=== PATIENT | female | born 1990 ===

== ENCOUNTER 2016-07-17 08:48 | Emergency (ER) | payer OTHER, MEDICAID ==
[2016-07-17 08:48] VITALS: BMI 33.6
[2016-07-17] MEDS ORDERED: Sodium Chloride 0.9% 1,000 ML IV STA (09:14)
--- NOTE | 2016-07-17 09:28 | ED PDOC ---
Arrival/HPI - General Chief Complaint: Abdominal Pain Time Seen by Provider: 07/17/16 09:10 Historian: Patient - History of Present Illness Narrative History of Present Illness (Text): 07/17/16 09:26 26 year old female presents to the emergency department with suprapubic pain that feels like her previous UTI. She also reports chills and nausea. No other complaints Time/Duration: < week Symptom Onset: Gradual Symptom Course: Unchanged Modifying Factors (Text): None Associated Symptoms (Text): Chills, Nausea Past Medical History - Provider Review Nursing Documentation Reviewed: Yes - Infectious Disease Hx of Infectious Diseases: None - Tetanus Immunization Tetanus Immunization: Unknown - Reproductive Menopause: No - Cardiac Hx Cardiac Disorders: No Hx Hypertension: No - Pulmonary Hx Respiratory Disorders: No Hx Tuberculosis: No - Neurological Hx Neurological Disorder: Yes Hx Seizures: Yes - HEENT Hx HEENT Disorder: No - Renal Hx Renal Disorder: Yes Hx Pyelonephritis: Yes - Endocrine/Metabolic Hx Endocrine Disorders: Yes Hx Hypothyroidism: Yes - Hematological/Oncological Hx Blood Disorders: No Hx Cancer: No - Integumentary Hx Dermatological Disorder: No - Musculoskeletal/Rheumatological Hx Musculoskeletal Disorders: Yes Hx Back Pain: Yes Hx Falls: No Other/Comment: spondylosis - Gastrointestinal Hx Gastrointestinal Disorders: No - Genitourinary/Gynecological Hx Genitourinary Disorders: No Hx Sexually Transmitted Diseases: No - Psychiatric Hx Psychophysiologic Disorder: Yes Hx Bipolar Disorder: Yes Hx Depression: Yes Hx Substance Use: No - Surgical History Hx Section: Yes (x1) Other/Comment: - Anesthesia Hx Anesthesia: Yes Hx Anesthesia Reactions: No Hx Malignant Hyperthermia: No Family/Social History - Physician Review Nursing Documentation Reviewed: Yes Family/Social History: Unknown Family HX Smoking Status: Current Some Days Smoker Hx Alcohol Use: No Hx Substance Use: No Substance used: marijuana Allergies/Home Meds Allergies/Adverse Reactions: Allergies No Known Allergies Allergy (Verified 07/17/16 08:55) Home Medications: Home Meds Medication Instructions Recorded Confirmed Invaga 07/17/16 Review of Systems - Physician Review All systems were reviewed & negative as marked: Yes - Review of Systems Constitutional: Other (Chills) Respiratory: absent: SOB Gastrointestinal: Abdominal Pain (Suprapubic), Nausea Neurological: absent: Dizziness Physical Exam Vital Signs Reviewed: Yes Vital Signs Temp Pulse Resp BP Pulse Ox 07/17/16 12:17 98.1 F 76 18 123/79 97 07/17/16 11:02 89 18 125/89 97 07/17/16 08:52 99 F 95 H 16 127/92 H 100 Temperature: Afebrile Blood Pressure: Normal Pulse: Regular Respiratory Rate: Normal Appearance: Positive for: Well-Appearing, Non-Toxic, Comfortable Pain Distress: None Mental Status: Positive for: Alert and Oriented X 3 - Systems Exam Head: Present: Atraumatic, Normocephalic Pupils: Present: PERRL Extroacular Muscles: Present: EOMI Conjunctiva: Present: Normal Mouth: Present: Moist Mucous Membranes Neck: Present: Normal Range of Motion Respiratory/Chest: Present: Clear to Auscultation, Good Air Exchange. No: Respiratory Distress, Accessory Muscle Use Cardiovascular: Present: Regular Rate and Rhythm, Normal S1, S2. No: Murmurs Abdomen: Present: Tenderness (Suprapubic), Normal Bowel Sounds. No: Distention , Peritoneal Signs Back: Present: Normal Inspection Upper Extremity: Present: Normal Inspection. No: Cyanosis, Edema Lower Extremity: Present: Normal Inspection. No: Edema Neurological: Present: GCS=15, CN II-XII Intact, Speech Normal Skin: Present: Warm, Dry, Normal Color. No: Rashes Psychiatric: Present: Alert, Oriented x 3, Normal Insight, Normal Concentration Medical Decision Making ED Course and Treatment: Impression: 26 year old female presents to the emergency department with suprapubic pain that feels like her previous UTI. Differential Diagnosis include but are not limited to: Abdominal pain Plan: -- Zofran -- IV fluids -- Labs -- Reassess and disposition Prior Visits: Notes and results from previous visits were reviewed. Patient last seen in ED on 05/18/16 for anxiety and discharged home. Progress Notes: PROCEDURE: CT Abdomen and Pelvis without intravenous contrast Spaghetti Machine Operator : Rodo Garner MD IMPRESSION: No acute findings. No evidence of ureteral stone 07/17/16 12:19 Patient texting on phone in no acute distress. Abdomen soft and nontender. - Lab Interpretations Lab Results: 07/17/16 09:42 07/17/16 09:42 Lab Results 07/17/16 09:42: Sodium 140, Potassium 4.6, Chloride 102, Carbon Dioxide 28, Anion Gap 15, BUN 18, Creatinine 0.9, Est GFR ( Amer) > 60, Est GFR (Non- Af Amer) > 60, Random Glucose 85, Calcium 9.3, Total Bilirubin 0.5, AST 24, ALT 24, Alkaline Phosphatase 67, Total Protein 7.6, Albumin 4.0, Globulin 3.5, Albumin/Globulin Ratio 1.1, Lipase 121 07/17/16 09:42: PT 10.4, INR 0.96, APTT 26.4 07/17/16 09:42: WBC 7.7, RBC 4.42, Hgb 13.0, Hct 39.0, MCV 88.2, MCH 29.4, MCHC 33.3, RDW 14.6 H, Plt Count 244, MPV 10.3, Gran % 62.3, Lymph % (Auto) 19.6 L, [place] % (Auto) 10.6 H, Eos % (Auto) 7.2 H, Baso % (Auto) 0.3, Gran # 4.78, Lymph # 1.5, [place] # 0.8 H, Eos # 0.6, Baso # 0.02 07/17/16 09:20: Urine Color Yellow, Urine Appearance Clear, Urine pH 7.0, Ur Specific [place] <= 1.005, Urine Protein Negative, Urine Glucose (UA) Negative, Urine Ketones Negative, Urine Blood Negative, Urine Nitrate Negative, Urine Bilirubin Negative, Urine Urobilinogen 0.2, Ur Leukocyte Esterase Negative, Urine HCG, Qual Negative - RAD Interpretation Radiology Orders: 07/17/16 10:17 ABD & PELVIS W/O PO OR IV CONT [CT] Stat - Medication Orders Current Medication Orders: Discontinued Medications Sodium Chloride (Sodium Chloride 0.9%) 1,000 mls @ 1,000 mls/hr IV .Q1H STA Stop: 07/17/16 10:13 Last Admin: 07/17/16 09:20 Dose: 1,000 mls/hr Ketorolac Tromethamine (Toradol) 30 mg IVP STAT STA Stop: 07/17/16 10:17 Last Admin: 07/17/16 11:20 Dose: 30 mg Ondansetron HCl (Zofran Inj) 4 mg IVP STAT STA Stop: 07/17/16 09:15 Last Admin: 07/17/16 09:20 Dose: 4 mg - Scribe Statement The provider has reviewed the documentation as recorded by the Yves Beard Provider Scribe Attestation: All medical record entries made by the Yves were at my direction and personally dictated by me. I have reviewed the chart and agree that the record accurately reflects my personal performance of the history, physical exam, medical decision making, and the department course for this patient. I have also personally directed, reviewed, and agree with the discharge instructions and disposition. Disposition/Present on Arrival - Present on Arrival Any Indicators Present on Arrival: No History of DVT/PE: No History of Uncontrolled Diabetes: No Urinary Catheter: No History of Decub. Ulcer: No History Surgical Site Infection Following: None - Disposition Have Diagnosis and Disposition been Completed?: Yes Diagnosis: Abdominal pain, Dysuria Disposition: HOME/ ROUTINE Disposition Time: 12:07 Patient Problems: Current Active Problems Problem Status Onset Abdominal pain Acute Dysuria Acute Condition: STABLE Discharge Instructions (ExitCare): Acute Abdominal Pain (ED), Dysuria (ED) Additional Instructions: please follow up with your doctor/specialist. return to er with worsening symptoms or concerns. Referrals: Vernon Arrington MD [Primary Care Provider] - Follow up with primary Osmani Coto DO [Staff Provider] - Follow up with primary Miguel Ferguson [Medical Doctor] - Follow up with primary Lupe Brown MD [Medical Doctor] - Follow up with primary
[2016-07-17 09:46] LABS: URINE BILIRUBIN NEGATIVE (NEGATIVE); URINE BLOOD NEGATIVE (NEGATIVE); URINE GLUCOSE (UA) NEGATIVE (NEGATIVE); URINE KETONE NEGATIVE (NEGATIVE); URINE LEUKOCYTE ESTERASE NEGATIVE Leu/uL (NEGATIVE); URINE PROTEIN NEGATIVE mg/dL (<30 mg/dL); URINE UROBILINOGEN 0.2 E.U./dL (<1 E.U./dL)
[2016-07-17 09:53] LABS: URINE APPEARANCE CLEAR (CLEAR); URINE COLOR YELLOW (YELLOW)
[2016-07-17 10:07] LABS: ADD MANUAL DIFF? NO
[2016-07-17 10:12] LABS: BASO # 0.02 K/mm3 (0.0-2.0); BASO % 0.3 % (0.0-3.0); EOS # 0.6 (0.0-0.7); EOS % 7.2 % (1.5-5.0); GRAN # 4.78 (1.4-6.5); GRAN % 62.3 % (50.0-68.0); LYMPH # 1.5 (1.2-3.4); LYMPH % 19.6 % (22.0-35.0); MEAN CELL VOLUME 88.2 fL (80.0-105.0); MEAN CORPUSCULAR HEMOGLOBIN 29.4 pg (25.0-35.0); MEAN CORPUSCULAR HGB CONC 33.3 g/dl (31.0-37.0); MEAN PLATELET VOLUME 10.3 fl (7.0-11.0); MONO # 0.8 (0.1-0.6); MONO % 10.6 % (1.0-6.0); PLATELET COUNT 244 10^3/uL (120.0-450.0); RED CELL DISTRIBUTION WIDTH 14.6 % (11.5-14.5); WHITE BLOOD COUNT 7.7 10^3/ul (4.5-11.0)
[2016-07-17 10:25] LABS: ALB/GLOB RATIO 1.1 (1.1-1.8); ALKALINE PHOSPHATASE 67 U/L (38-133); ALT/SGPT 24 U/L (7-56); AST/SGOT 24 U/L (15-39); BILIRUBIN,TOTAL 0.5 mg/dL (0.2-1.3); BLOOD UREA NITROGEN 18 mg/dL (7-21); CALCIUM 9.3 mg/dL (8.4-10.5); CARBON DIOXIDE 28 mmol/L (21-33); CHLORIDE 102 mmol/L (98-107); GFR AFRICAN-AMERICAN > 60; GLUCOSE,RANDOM 85 mg/dL (70-110); LIPASE 121 U/L (23-300); POTASSIUM 4.6 mmol/L (3.6-5.0); SODIUM 140 mmol/L (132-148); TOTAL PROTEIN 7.6 g/dL (5.8-8.3)
[2016-07-17 11:02] VITALS: RESP 18; O2SAT 97
[2016-07-17 11:27] LABS: INR 0.96 (0.93-1.08); PARTIAL THROMBOPLASTIN TIME 26.4 Seconds (23.7-30.8)
--- NOTE | 2016-07-17 12:00 | CT ---
PROCEDURE: CT Abdomen and Pelvis without intravenous contrast HISTORY: flank pain COMPARISON: 08/15/2015 TECHNIQUE: Noncontrast. Contrast Dose: Radiation dose: Total exam DLP = 807 mGy-cm. This CT exam was performed using one or more of the following dose reduction techniques: Automated exposure control, adjustment of the mA and/or kV according to patient size, and/or use of iterative reconstruction technique. FINDINGS: LOWER THORAX: Unremarkable. LIVER: Unremarkable. No gross lesion or ductal dilatation. GALLBLADDER AND BILE DUCTS: Unremarkable. PANCREAS: Unremarkable. No gross lesion or ductal dilatation. SPLEEN: Unremarkable. ADRENALS: Unremarkable. No mass. KIDNEYS AND URETERS: Unremarkable. No hydronephrosis. No solid mass. VASCULATURE: Unremarkable. No aortic aneurysm. BOWEL: Unremarkable. No obstruction. No gross mural thickening. APPENDIX: Unremarkable. Normal appendix. PERITONEUM: Unremarkable. No free fluid. No free air. LYMPH NODES: Unremarkable. No enlarged lymph nodes. BLADDER: Unremarkable. REPRODUCTIVE: Unremarkable. BONES: No acute fracture. OTHER FINDINGS: None. IMPRESSION: No acute findings. No evidence of ureteral stone
[2016-07-17 12:18] VITALS: BP 123/79; PULSE 76; TEMP 98.1
== END 2016-07-17 12:44 | disposition home or self-care (01) ==
LOC: ED 08:48
DX: R30.0 Dysuria (principal); R10.9 Unspecified abdominal pain
CPT/HCPCS: 74176; 80053; 81003; 83690; 84703; 85025; 85610; 85730; 96361; 96374; 96375; 99284; J1885; J2405; J7040

== ENCOUNTER 2016-10-02 11:54 | Emergency (ER) | payer MEDICAID, OTHER ==
[2016-10-02 11:57] VITALS: BMI 34.5
[2016-10-02 12:02] VITALS: BP 126/87; PULSE 88; RESP 20; TEMP 97.8; O2SAT 100
--- NOTE | 2016-10-02 12:07 | ED PDOC ---
Arrival/HPI - General Historian: Patient - History of Present Illness Time/Duration: 1 week Symptom Onset: Gradual Symptom Course: Unchanged <Mahendra Cota - Last Filed: 10/02/16 13:31> <Osmani Foreman DO - Last Filed: 10/02/16 20:46> - General Chief Complaint: Flu-like Symptoms Time Seen by Provider: 10/02/16 12:05 - History of Present Illness Narrative History of Present Illness (Text): 26 F with PMH of Bipolar disorder, hypothyroidism, Schizoaffective disorder, presents to ED for complaint of flu-like symptoms for 1 week. Patient states that it was a graudal onset and has not gotten better. Her symptoms have been constant. She reporst to having cough, runny nose, congestion, PND, muscle/ joint aches, nausea/vomting. Patient has had decreased PO intae over lasst week , vomiting up all foods and liquids. Today, she was bale to keep down a little, gatorade. Also admits to subjective fever/chills, night sweats, fatigue. Denies cp, sob, palpitations, abd pain, diarrhea, constipation. (Mahendra Cota) Past Medical History - Provider Review Nursing Documentation Reviewed: Yes - Travel History Have you recently traveled outside [place] w/in the past 3 mons?: No - Infectious Disease Hx of Infectious Diseases: None - Tetanus Immunization Tetanus Immunization: Unknown - Cardiac Hx Cardiac Disorders: No Hx Hypertension: No - Pulmonary Hx Respiratory Disorders: No Hx Tuberculosis: No - Neurological Hx Neurological Disorder: Yes Hx Seizures: Yes - HEENT Hx HEENT Disorder: No - Renal Hx Renal Disorder: Yes Hx Pyelonephritis: Yes - Endocrine/Metabolic Hx Endocrine Disorders: Yes Hx Hypothyroidism: Yes - Hematological/Oncological Hx Blood Disorders: No Hx Cancer: No - Integumentary Hx Dermatological Disorder: No - Musculoskeletal/Rheumatological Hx Musculoskeletal Disorders: Yes Hx Back Pain: Yes Hx Falls: No Other/Comment: spondylosis - Gastrointestinal Hx Gastrointestinal Disorders: No - Genitourinary/Gynecological Hx Genitourinary Disorders: No Hx Sexually Transmitted Diseases: No - Psychiatric Hx Psychophysiologic Disorder: Yes Hx Bipolar Disorder: Yes Hx Depression: Yes Hx Substance Use: No - Surgical History Hx Section: Yes (x1) Other/Comment: - Anesthesia Hx Anesthesia: Yes Hx Anesthesia Reactions: No Hx Malignant Hyperthermia: No <Mahendra Cota Last Filed: 10/02/16 13:31> Family/Social History - Physician Review Nursing Documentation Reviewed: Yes Smoking Status: Light Smoker < 10 Cigarettes Daily Hx Alcohol Use: No Hx Substance Use: No Substance used: marijuana <Mahendra Cota Last Filed: 10/02/16 13:31> Family/Social History: No Known Family HX <Osmani Foreman DO - Last Filed: 10/02/16 20:46> Allergies/Home Meds <Mahendra Cota Last Filed: 10/02/16 13:31> <Osmani Foreman DO Last Filed: 10/02/16 20:46> Allergies/Adverse Reactions: Allergies No Known Allergies Allergy (Verified 10/02/16 11:57) Home Medications: Home Meds Medication Instructions Recorded Confirmed Invaga 156 mg PO Q30D 07/17/16 10/02/16 Review of Systems - Review of Systems Constitutional: Fatigue, Fevers, Night Sweats. absent: Weight Change Eyes: absent: Vision Changes, Photophobia, Eye Pain ENT: Sore Throat, Rhinorrhea, Sinus Congestion. absent: Epistaxis Respiratory: Cough, Sputum. absent: SOB, Wheezing Cardiovascular: absent: Chest Pain, Palpitations, Syncope Gastrointestinal: Nausea, Vomiting. absent: Abdominal Pain, Constipation, Diarrhea, Hematochezia, Hematemesis Genitourinary Female: absent: Dysuria, Frequency, Hematuria Musculoskeletal: Arthralgias, Myalgias Skin: absent: Rash, Pruritis, Skin Lesions Neurological: absent: Headache, Dizziness, Focal Weakness Endocrine: absent: Diaphoresis, Polyuria, Polydipsia Hemo/Lymphatic: absent: Adenopathy, Easy Bleeding, Easy Bruising Psychiatric: absent: Anxiety, Depression, Suicidal Ideation <Mahendra Cota Last Filed: 10/02/16 13:31> Physical Exam Vital Signs Reviewed: Yes Temperature: Afebrile Blood Pressure: Normal Pulse: Regular Respiratory Rate: Normal Appearance: Positive for: Well-Appearing, Non-Toxic, Comfortable Pain Distress: None Mental Status: Positive for: Alert and Oriented X 3 - Systems Exam Head: Present: Atraumatic, Normocephalic Pupils: Present: PERRL Extroacular Muscles: Present: EOMI Conjunctiva: Present: Normal Ears: Present: Normal, NORMAL TM Mouth: Present: Moist Mucous Membranes Pharnyx: Present: Normal. No: ERYTHEMA, EXUDATE, TONSILS ENLARGED Nose (External): Present: Atraumatic Nose (Internal): Present: Boggy, Rhinorrhea Neck: Present: Normal Range of Motion, Trachea Midline Respiratory/Chest: Present: Clear to Auscultation, Good Air Exchange. No: Respiratory Distress, Accessory Muscle Use, Wheezes, Rales, Rhonchi Cardiovascular: Present: Regular Rate and Rhythm, Normal S1, S2 Abdomen: Present: Normal Bowel Sounds. No: Tenderness, Distention, Peritoneal Signs, Rebound, Guarding Back: Present: Normal Inspection. No: CVA Tenderness, Midline Tenderness, Paraspinal Tenderness Upper Extremity: Present: Normal ROM, NORMAL PULSES, Neurovascularly Intact, Capillary Refill < 2s. No: Cyanosis, Edema Lower Extremity: Present: NORMAL PULSES, Normal ROM, Neurovascularly Intact, Capillary Refill < 2 s Neurological: Present: GCS=15, CN II-XII Intact, Speech Normal, Motor Func Grossly Intact, Normal Sensory Function, Normal Cerebellar Funct Skin: Present: Warm, Dry, Normal Color Lymphatic: No: Cervical Adenopathy, Axillary Adenopathy, Inguinal Adenopathy Psychiatric: Present: Alert, Oriented x 3, Normal Insight, Normal Concentration , Normal Affect, Normal Mood <Mahendra Cota - Last Filed: 10/02/16 13:31> <Osmani Foreman DO - Last Filed: 10/02/16 20:46> Vital Signs Temp Pulse Resp BP Pulse Ox 10/02/16 12:00 97.8 F 88 20 126/87 100 Medical Decision Making <Mahendra Cota - Last Filed: 10/02/16 13:31> <Osmani Foreman DO - Last Filed: 10/02/16 20:46> ED Course and Treatment: CBC, CMP, Urinalysis, Urine , influenze A B ordered. NS 1L bolus, zofran, clariton given. Patient Eloped around 1:10 pm. (Mahendra Cota) In agreement with resident note, which includes further HPI details. Patient was seen and evaluated with resident, came up with plan and treatment together. (Osmnai Foreman DO) - Lab Interpretations Lab Results: 10/02/16 12:50 10/02/16 12:50 Lab Results 10/02/16 12:50: Influenza Typ A,B (EIA) Negative for flu a/b 10/02/16 12:50: Sodium 140, Potassium 4.5, Chloride 102, Carbon Dioxide 29, Anion Gap 14, BUN 12, Creatinine 1.0, Est GFR ( Amer) > 60, Est GFR (Non- Af Amer) > 60, Random Glucose 83, Calcium 9.7, Total Bilirubin 0.5, AST 25, ALT 29, Alkaline Phosphatase 84, Total Protein 8.3, Albumin 4.5, Globulin 3.8, Albumin/Globulin Ratio 1.2 10/02/16 12:50: Urine Color Yellow, Urine Appearance Clear, Urine pH 7.0, Ur Specific [place] 1.010, Urine Protein Negative, Urine Glucose (UA) Negative, Urine Ketones Negative, Urine Blood Negative, Urine Nitrate Negative, Urine Bilirubin Negative, Urine Urobilinogen 0.2, Ur Leukocyte Esterase Negative, Urine HCG, Qual Negative 10/02/16 12:50: WBC 8.1, RBC 4.65, Hgb 14.0, Hct 41.4, MCV 89.0, MCH 30.1, MCHC 33.8, RDW 13.7, Plt Count 235, MPV 9.8, Gran % 61.1, Lymph % (Auto) 21.8 L, [place] % (Auto) 7.2 H, Eos % (Auto) 9.5 H, Baso % (Auto) 0.4, Gran # 4.94, Lymph # 1.8, [place] # 0.6, Eos # 0.8 H, Baso # 0.03 - Medication Orders Current Medication Orders: Discontinued Medications Sodium Chloride (Sodium Chloride 0.9%) 1,000 mls @ 999 mls/hr IV .Q1H1M STA Stop: 10/02/16 13:23 Last Admin: 10/02/16 12:58 Dose: 999 mls/hr Loratadine (Claritin) 10 mg PO ONCE ONE Stop: 10/02/16 12:24 Last Admin: 10/02/16 12:59 Dose: 10 mg Ondansetron HCl (Zofran Inj) 4 mg IVP STAT STA Stop: 10/02/16 12:24 Last Admin: 10/02/16 12:58 Dose: 4 mg <Maehndra Cota - Last Filed: 10/02/16 13:31> - PA / CAP SEWER / Resident Statement SARAHI has reviewed & agrees with the documentation as recorded. SARAHI has examined the patient and agrees with the treatment plan. - Scribe Statement The provider has reviewed the documentation as recorded by the Scribe <Osmani Foreman DO - Last Filed: 10/02/16 20:46> - Scribe Statement Kassie Walter Provider Scribe Attestation: All medical record entries made by the Scribe were at my direction and personally dictated by me. I have reviewed the chart and agree that the record accurately reflects my personal performance of the history, physical exam, medical decision making, and the department course for this patient. I have also personally directed, reviewed, and agree with the discharge instructions and disposition. (Osmani Foreman DO) Disposition/Present on Arrival - Present on Arrival History of DVT/PE: No History of Uncontrolled Diabetes: No Urinary Catheter: No History of Decub. Ulcer: No History Surgical Site Infection Following: None <Mahendra Cota - Last Filed: 10/02/16 13:31> - Present on Arrival Any Indicators Present on Arrival: No - Disposition Have Diagnosis and Disposition been Completed?: Yes Disposition Time: 12:00 <Osmani Foreman DO - Last Filed: 10/02/16 20:46> - Disposition Diagnosis: Viral syndrome Disposition: ELOPEMENT - ER ONLY Condition: UNKNOWN Referrals: PCP,NO [Primary Care Provider] - Follow up with primary
[2016-10-02] MEDS ORDERED: Sodium Chloride 0.9% 1,000 ML IV STA (12:23)
[2016-10-02 13:06] LABS: BASO # 0.03 K/mm3 (0.0-2.0); BASO % 0.4 % (0.0-3.0); EOS # 0.8 (0.0-0.7); EOS % 9.5 % (1.5-5.0); GRAN # 4.94 (1.4-6.5); GRAN % 61.1 % (50.0-68.0); LYMPH # 1.8 (1.2-3.4); LYMPH % 21.8 % (22.0-35.0); MEAN CORPUSCULAR HEMOGLOBIN 30.1 pg (25.0-35.0); MEAN CORPUSCULAR HGB CONC 33.8 g/dl (31.0-37.0); MEAN PLATELET VOLUME 9.8 fl (7.0-11.0); MONO # 0.6 (0.1-0.6); MONO % 7.2 % (1.0-6.0); PLATELET COUNT 235 10^3/uL (120.0-450.0); RBC 4.65 10^6/uL (3.5-6.1); RED CELL DISTRIBUTION WIDTH 13.7 % (11.5-14.5); URINE BILIRUBIN NEGATIVE (NEGATIVE); URINE BLOOD NEGATIVE (NEGATIVE); URINE GLUCOSE (UA) NEGATIVE (NEGATIVE); URINE LEUKOCYTE ESTERASE NEGATIVE Leu/uL (NEGATIVE); URINE NITRATE NEGATIVE (NEGATIVE); URINE PROTEIN NEGATIVE mg/dL (<30 mg/dL); URINE UROBILINOGEN 0.2 E.U./dL (<1 E.U./dL); WHITE BLOOD COUNT 8.1 10^3/ul (4.5-11.0)
[2016-10-02 13:09] LABS: HCG,QUALITATIVE URINE NEGATIVE (NEGATIVE); URINE APPEARANCE CLEAR (CLEAR); URINE COLOR YELLOW (YELLOW)
[2016-10-02 13:18] LABS: ALB/GLOB RATIO 1.2 (1.1-1.8); ALBUMIN 4.5 g/dL (3.0-4.8); ALT/SGPT 29 U/L (7-56); AST/SGOT 25 U/L (15-39); BLOOD UREA NITROGEN 12 mg/dL (7-21); CALCIUM 9.7 mg/dL (8.4-10.5); GFR AFRICAN-AMERICAN > 60; GFR NON-AFRICAN AMERICAN > 60
== END 2016-10-02 13:10 | disposition left against medical advice (07) ==
LOC: ED 11:54
DX: B34.9 Viral infection, unspecified (principal)
CPT/HCPCS: 80053; 81003; 84703; 85025; 87086; 87804; 96374; 99284; J2405; J7040

== ENCOUNTER 2016-10-07 11:48 | Observation (INO) | payer MEDICAID ==
[2016-10-07 11:54] VITALS: BMI 32.5
--- NOTE | 2016-10-07 12:14 | ED PDOC ---
Arrival/HPI - General Chief Complaint: Seizure Time Seen by Provider: 10/07/16 11:49 Historian: Patient, Parent (Mother), EMS - History of Present Illness Narrative History of Present Illness (Text): 10/07/16 12:09 A 26 year old female, whose past medical history includes seizure disorder, was brought into the emergency department by EMS after witnessed seizure prior to arrival. Patient reports she has not been compliant with any of her medications for the past few weeks. Patient is suppose to be taking 1500 mg of Depakote daily. Patient denies any head trauma, headache, dizziness, vision changes, tongue bitting, fever, chills, nausea, vomiting, diarrhea, urinary symptoms, urinary/bowel incontinence, abdominal pain, chest pain, shortness of breath, suicidal/homicidal ideation or any other complaints. PMD: Dr. Fisher in [place] Psychologist: [facility] [place] Provider Time/Duration: Prior to Arrival Symptom Course: Resolved Quality: Other Context: Other Past Medical History - Provider Review Nursing Documentation Reviewed: Yes - Infectious Disease Hx of Infectious Diseases: None - Tetanus Immunization Tetanus Immunization: Unknown - Cardiac Hx Cardiac Disorders: No Hx Hypertension: No - Pulmonary Hx Respiratory Disorders: No Hx Tuberculosis: No - Neurological Hx Neurological Disorder: Yes Hx Seizures: Yes - HEENT Hx HEENT Disorder: No - Renal Hx Renal Disorder: Yes Hx Pyelonephritis: Yes - Endocrine/Metabolic Hx Endocrine Disorders: Yes Hx Hypothyroidism: Yes - Hematological/Oncological Hx Blood Disorders: No Hx Cancer: No - Integumentary Hx Dermatological Disorder: No - Musculoskeletal/Rheumatological Hx Musculoskeletal Disorders: Yes Hx Back Pain: Yes Hx Falls: No Other/Comment: spondylosis - Gastrointestinal Hx Gastrointestinal Disorders: No - Genitourinary/Gynecological Hx Genitourinary Disorders: No Hx Sexually Transmitted Diseases: No - Psychiatric Hx Psychophysiologic Disorder: Yes Hx Bipolar Disorder: Yes Hx Depression: Yes Hx Substance Use: Yes - Surgical History Hx Section: Yes (x1) - Anesthesia Hx Anesthesia: Yes Hx Anesthesia Reactions: No Hx Malignant Hyperthermia: No Family/Social History - Physician Review Nursing Documentation Reviewed: Yes Family/Social History: No Known Family HX Smoking Status: Light Smoker < 10 Cigarettes Daily Hx Alcohol Use: No Hx Substance Use: Yes Substance used: marijuana Allergies/Home Meds Allergies/Adverse Reactions: Allergies No Known Allergies Allergy (Verified 10/07/16 11:54) Home Medications: Home Meds Medication Instructions Recorded Confirmed Invaga 156 mg PO Q30D 07/17/16 10/07/16 Benztropine [Cogentin] 2 mg PO DAILY 10/07/16 10/07/16 Review of Systems - Physician Review All systems were reviewed & negative as marked: Yes - Review of Systems Constitutional: absent: Fevers, Night Sweats Eyes: absent: Vision Changes ENT: absent: Other (Tongue bitting) Respiratory: absent: SOB Cardiovascular: absent: Chest Pain Gastrointestinal: absent: Abdominal Pain, Diarrhea, Nausea, Vomiting Genitourinary Female: absent: Dysuria, Frequency, Hematuria, Urine Output Changes, Other (Urinary/bowel incontinence) Neurological: Seizure. absent: Headache, Dizziness Psychiatric: absent: Suicidal Ideation (/homicidal ideation) Physical Exam Vital Signs Reviewed: Yes Vital Signs Temp Pulse Resp BP Pulse Ox 10/07/16 15:06 98 H 18 131/65 100 10/07/16 14:05 100 H 18 133/66 100 10/07/16 12:14 98.2 F 91 H 20 127/62 97 Temperature: Afebrile Blood Pressure: Normal Pulse: Tachycardic Respiratory Rate: Normal Appearance: Positive for: Well-Appearing, Non-Toxic, Comfortable Pain Distress: None Mental Status: Positive for: Alert and Oriented X 3 - Systems Exam Head: Present: Atraumatic, Normocephalic Pupils: Present: PERRL Conjunctiva: Present: Normal Mouth: Present: Moist Mucous Membranes Pharnyx: Present: Normal. No: ERYTHEMA Neck: Present: Normal Range of Motion Respiratory/Chest: Present: Clear to Auscultation, Good Air Exchange. No: Respiratory Distress, Accessory Muscle Use Cardiovascular: Present: Regular Rate and Rhythm, Normal S1, S2. No: Murmurs Abdomen: Present: Normal Bowel Sounds. No: Tenderness, Distention, Peritoneal Signs Back: Present: Normal Inspection Upper Extremity: Present: Normal Inspection. No: Cyanosis, Edema Lower Extremity: Present: Normal Inspection. No: Edema Neurological: Present: GCS=15, CN II-XII Intact, Speech Normal, Motor Func Grossly Intact, Normal Sensory Function, Normal Cerebellar Funct, Gait Normal Skin: Present: Warm, Dry, Normal Color. No: Rashes Psychiatric: Present: Alert, Oriented x 3, Normal Insight, Normal Concentration Medical Decision Making ED Course and Treatment: 10/07/16 12:09 Impression: A 26 year old female brought in after witnessed seizure. Physical exam unremarkable. Differential Diagnosis included but are not limited to: Seizure Plan: -- EKG -- Labs -- Urinalysis -- Reassess and disposition - Lab Interpretations I have reviewed the lab results: Yes - Medication Orders Current Medication Orders: Discontinued Medications Acetaminophen (Tylenol 325mg Tab) 975 mg PO STAT STA Stop: 10/07/16 15:47 Last Admin: 10/07/16 16:10 Dose: 975 mg Levetiracetam 1,000 mg/ Sodium (Chloride) 110 mls @ 440 mls/hr IV ONCE STA Stop: 10/07/16 13:16 Last Admin: 10/07/16 13:27 Dose: 440 mls/hr Lorazepam (Ativan) Confirm Administered Dose 2 mg .ROUTE .STK-MED ONE Stop: 10/07/16 13:01 Last Admin: 10/07/16 13:27 Dose: Lorazepam (Ativan) 2 mg IVP ONCE STA PRN Reason: Protocol Stop: 10/07/16 13:09 Last Admin: 10/07/16 13:00 Dose: 2 mg Valproate Sodium (Depakene) 1,000 mg PO ONCE STA Stop: 10/07/16 15:47 Last Admin: 10/07/16 16:11 Dose: 1,000 mg ED OBSERVATION Discharge: Yes Date of observation admission: 10/07/16 Time of observation admission: 11:56 - Observation admission statement Patient is being placed in observation because:: Seizure - Goals of Observation Goals of observation are:: Monitor and treat patients symptoms - Progress Note Progress Note: 10/07/16 11:56 Patient brought after witnessed seizure. Physical exam unremarkable. EKG shows NSR at 96 BPM with normal intervals, normal axis, no ST/T changes. Interpreted by me. 10/07/16 13:10 Patient had a tonic clonic seizure here in the ED. 2mg of Ativan administered. Will load with Keppra IV. 10/07/16 14:03 On re-evaluation, patient is still drowsy but becoming more alert 10/07/16 15:00 Patient is more awake, however, she became agitated and wanted to leave the emergency room. As a result patient was placed in soft restraints which caused patient to calm down. 10/07/16 15:45 Patient is more awake, alert and oriented. She is complaining of a mild headache but denies any other complaints. Will administer Tylenol to treat headache and 1000 mg of Depakote. Plan is to discharge home and have patient continue on previous Depakote dose. Patient in agreement with plan and states she will compliant with her medication. Patient was instructed to follow up with physician or return if symptoms worsen or new concerning symptoms arise. 10/07/16 16:31 Patient is fully AA&O x 3 and feeling much better and ready for d/c. Mother is here - will d/c to f/u neuro and restart her depakote as prescribed previously. She says that she already has the depakote at home and does not need a script. - Scribe Statement The provider has reviewed the documentation as recorded by the Rayshawnibmargo Benavides Provider Scribe Attestation: All medical record entries made by the Scribe were at my direction and personally dictated by me. I have reviewed the chart and agree that the record accurately reflects my personal performance of the history, physical exam, medical decision making, and the department course for this patient. I have also personally directed, reviewed, and agree with the discharge instructions and disposition. Disposition/Present on Arrival - Present on Arrival Any Indicators Present on Arrival: No History of DVT/PE: No History of Uncontrolled Diabetes: No Urinary Catheter: No History of Decub. Ulcer: No History Surgical Site Infection Following: None - Disposition Have Diagnosis and Disposition been Completed?: Yes Diagnosis: Seizure, Noncompliance Disposition: HOME/ ROUTINE Disposition Time: 11:56 Patient Plan: Discharge Patient Problems: Current Active Problems Problem Status Onset Noncompliance Acute Seizure Chronic Condition: GOOD
[2016-10-07 12:15] VITALS: TEMP 98.2
[2016-10-07 12:41] LABS: BASO # 0.02 K/mm3 (0.0-2.0); BASO % 0.2 % (0.0-3.0); EOS # 0.4 (0.0-0.7); GRAN # 5.92 (1.4-6.5); HEMOGLOBIN 12.9 gm/dL (12.0-16.0); LYMPH # 1.3 (1.2-3.4); LYMPH % 15.7 % (22.0-35.0); MEAN CELL VOLUME 89.1 fL (80.0-105.0); MEAN CORPUSCULAR HEMOGLOBIN 29.3 pg (25.0-35.0); MEAN CORPUSCULAR HGB CONC 32.9 g/dl (31.0-37.0); MEAN PLATELET VOLUME 9.9 fl (7.0-11.0); MONO # 0.7 (0.1-0.6); MONO % 8.1 % (1.0-6.0); PLATELET COUNT 223 10^3/uL (120.0-450.0); RED CELL DISTRIBUTION WIDTH 13.9 % (11.5-14.5); WHITE BLOOD COUNT 8.4 10^3/ul (4.5-11.0)
[2016-10-07 12:50] LABS: ALB/GLOB RATIO 1.2 (1.1-1.8); ALBUMIN 4.1 g/dL (3.0-4.8); ALT/SGPT 24 U/L (7-56); AMYLASE 93 U/L (35-125); AST/SGOT 26 U/L (15-39); BLOOD UREA NITROGEN 11 mg/dL (7-21); CALCIUM 9.3 mg/dL (8.4-10.5); GFR AFRICAN-AMERICAN > 60; GFR NON-AFRICAN AMERICAN > 60; LIPASE 139 U/L (23-300)
[2016-10-07] MEDS ORDERED: levETIRAcetam 1,000 MG in Sodium Chloride 0.9% 100 ML IV STA (13:02)
[2016-10-07 13:22] LABS: URINE BILIRUBIN NEGATIVE (NEGATIVE); URINE BLOOD NEGATIVE (NEGATIVE); URINE GLUCOSE (UA) NEGATIVE (NEGATIVE); URINE LEUKOCYTE ESTERASE NEGATIVE Leu/uL (NEGATIVE); URINE NITRATE NEGATIVE (NEGATIVE); URINE PROTEIN NEGATIVE mg/dL (<30 mg/dL); URINE UROBILINOGEN 0.2 E.U./dL (<1 E.U./dL)
[2016-10-07 13:23] LABS: URINE APPEARANCE CLEAR (CLEAR); URINE COLOR YELLOW (YELLOW)
[2016-10-07 13:25] LABS: HCG,QUALITATIVE URINE NEGATIVE (NEGATIVE)
[2016-10-07 14:01] LABS: BARBITURATES, UR NEGATIVE (NEGATIVE); BENZODIAZEPINES, UR NEGATIVE (NEGATIVE); OPIATES, UR NEGATIVE (NEGATIVE); PHENCYCLIDINE, UR NEGATIVE (NEGATIVE)
[2016-10-07 14:05] VITALS: RESP 18; O2SAT 100
[2016-10-07 15:07] VITALS: BP 131/65; PULSE 98
--- NOTE | 2016-10-08 13:21 | CARD ---
APPROVED REPORT EKG Measurement Heart [id number] <Conclusion> Normal sinus rhythm Normal ECG
== END 2016-10-07 16:57 | disposition home or self-care (01) ==
LOC: ED 11:48 → EROBSV 11:56
PROVIDERS: ADMIT Emergency Medicine; ATTEND Emergency Medicine
DX: R56.9 Unspecified convulsions (principal); Z91.19 Patient's noncompliance with other medical treatment and regimen
CPT/HCPCS: 80053; 80164; 80324; 80345; 80346; 80349; 80353; 80358; 80361; 81003; 82150; 83690; 83992; 84703; 85025; 93005; 96374; 99285; G0378; J1953; J2060

== ENCOUNTER 2016-10-09 20:33 | Emergency (ER) | payer MEDICAID ==
[2016-10-09 20:55] VITALS: BMI 33.6
[2016-10-09 20:56] VITALS: BP 136/88; PULSE 100; RESP 20; TEMP 98.5; O2SAT 96
--- NOTE | 2016-10-09 21:01 | ED PDOC ---
Arrival/HPI - General Time Seen by Provider: 10/09/16 20:36 - History of Present Illness Narrative History of Present Illness (Text): 26 y/o F p/w no complaints. Patient states that her mother called the ambulance to take her to the ER because she was being disruptive. The patient currently denies any complaints and wishes to go home. She denies homicidal ideation, suicidal ideation, hallucinations, pain, shortness of breath, fever, vomiting. She states she took 4mg Ativan today. Past Medical History - Infectious Disease Hx of Infectious Diseases: None - Tetanus Immunization Tetanus Immunization: Unknown - Cardiac Hx Cardiac Disorders: No Hx Hypertension: No - Pulmonary Hx Respiratory Disorders: No Hx Tuberculosis: No - Neurological Hx Neurological Disorder: Yes Hx Seizures: Yes - HEENT Hx HEENT Disorder: No - Renal Hx Renal Disorder: Yes Hx Pyelonephritis: Yes - Endocrine/Metabolic Hx Endocrine Disorders: Yes Hx Hypothyroidism: Yes - Hematological/Oncological Hx Blood Disorders: No Hx Cancer: No - Integumentary Hx Dermatological Disorder: No - Musculoskeletal/Rheumatological Hx Musculoskeletal Disorders: Yes Hx Back Pain: Yes Hx Falls: No Other/Comment: spondylosis - Gastrointestinal Hx Gastrointestinal Disorders: No - Genitourinary/Gynecological Hx Genitourinary Disorders: No Hx Sexually Transmitted Diseases: No - Psychiatric Hx Psychophysiologic Disorder: Yes Hx Bipolar Disorder: Yes Hx Depression: Yes Hx Substance Use: Yes - Surgical History Hx Section: Yes (x1) - Anesthesia Hx Anesthesia: Yes Hx Anesthesia Reactions: No Hx Malignant Hyperthermia: No Family/Social History Family/Social History: No Known Family HX Smoking Status: Light Smoker < 10 Cigarettes Daily Hx Alcohol Use: No Hx Substance Use: Yes Substance used: marijuana Allergies/Home Meds Allergies/Adverse Reactions: Allergies No Known Allergies Allergy (Verified 10/07/16 11:54) Home Medications: Home Meds Medication Instructions Recorded Confirmed Lorazepam [Ativan] 1 mg PO BID 10/09/16 10/09/16 Review of Systems - Physician Review All systems were reviewed & negative as marked: Yes - Review of Systems Constitutional: absent: Fevers Respiratory: absent: SOB Cardiovascular: absent: Chest Pain Physical Exam Vital Signs Reviewed: Yes Vital Signs Temp Pulse Resp BP Pulse Ox 10/09/16 20:55 98.5 F 100 H 20 136/88 96 Temperature: Afebrile Blood Pressure: Normal Pulse: Regular Respiratory Rate: Normal Appearance: Positive for: Non-Toxic, Comfortable Pain Distress: None Mental Status: Positive for: Alert and Oriented X 3 - Systems Exam Head: Present: Atraumatic, Normocephalic Pupils: Present: PERRL Extroacular Muscles: Present: EOMI Mouth: Present: Moist Mucous Membranes Neck: Present: Normal Range of Motion Respiratory/Chest: Present: Clear to Auscultation Cardiovascular: Present: Regular Rate and Rhythm Abdomen: No: Tenderness Back: No: CVA Tenderness Upper Extremity: No: Edema Lower Extremity: No: Edema Neurological: Present: GCS=15 Skin: No: Rashes Psychiatric: Present: Alert Medical Decision Making ED Course and Treatment: Patient awake, alert, in no distress, wishes to go home, and has no indication for holding in ER against her will. Will discharge home, informed she may return to the ER at any time. Disposition/Present on Arrival - Present on Arrival Any Indicators Present on Arrival: No History of DVT/PE: No History of Uncontrolled Diabetes: No Urinary Catheter: No History Surgical Site Infection Following: None - Disposition Have Diagnosis and Disposition been Completed?: Yes Diagnosis: No complaints Disposition: HOME/ ROUTINE Disposition Time: 21:00 Patient Plan: Discharge Patient Problems: Current Active Problems Problem Status Onset No complaints Acute Condition: STABLE Referrals: Osmani Quiroz MD [Primary Care Provider] - Follow up with primary
== END 2016-10-09 21:05 | disposition home or self-care (01) ==
LOC: ED 20:33
DX: Z03.89 Encounter for observation for other suspected diseases and conditions ruled out (principal); F17.210 Nicotine dependence, cigarettes, uncomplicated

== ENCOUNTER 2016-10-17 13:14 | Inpatient (IN) | payer MEDICAID ==
[2016-10-17 13:14] VITALS: BMI 33.6
[2016-10-17 13:30] VITALS: RESP 20
[2016-10-17] MEDS ORDERED: Sodium Chloride 0.9% 1,000 ML IV STA (14:06)
--- NOTE | 2016-10-17 14:21 | ED PDOC ---
Arrival/HPI - General Chief Complaint: Weakness/Neurological Deficit Time Seen by Provider: 10/17/16 13:53 Historian: Patient - History of Present Illness Narrative History of Present Illness (Text): 10/17/16 13:40 A 26 year old female, whose past medical history includes seizure disorder, presents to the emergency department with complaints of feeling "out of it" since yesterday afternoon. The patient reports she began to feel out of it yesterday afternoon and believed she would have felt better with given time, but she woke up this morning feeling the same way. She reports feeling light headed and dizzy. She denies taking any drugs or medications beyond prescribed and alcohol use. The patient denies any chest pain, shortness of breath, nausea , vomiting, diarrhea, suicidal/homicidal indentions, or any other symptoms at this time. Time/Duration: 24 hours (Yesterday afternoon.) Symptom Onset: Gradual Symptom Course: Unchanged Activities at Onset: Light Context: Home Past Medical History - Provider Review Nursing Documentation Reviewed: Yes - Infectious Disease Hx of Infectious Diseases: None - Tetanus Immunization Tetanus Immunization: Unknown - Reproductive Menopause: No - Cardiac Hx Cardiac Disorders: No Hx Hypertension: No - Pulmonary Hx Respiratory Disorders: No Hx Tuberculosis: No - Neurological Hx Neurological Disorder: Yes Hx Seizures: Yes - HEENT Hx HEENT Disorder: No - Renal Hx Renal Disorder: Yes Hx Pyelonephritis: Yes - Endocrine/Metabolic Hx Endocrine Disorders: Yes Hx Hypothyroidism: Yes - Hematological/Oncological Hx Blood Disorders: No Hx Cancer: No - Integumentary Hx Dermatological Disorder: No - Musculoskeletal/Rheumatological Hx Musculoskeletal Disorders: Yes Hx Back Pain: Yes Hx Falls: No Other/Comment: spondylosis - Gastrointestinal Hx Gastrointestinal Disorders: No - Genitourinary/Gynecological Hx Genitourinary Disorders: No Hx Sexually Transmitted Diseases: No - Psychiatric Hx Psychophysiologic Disorder: Yes Hx Bipolar Disorder: Yes Hx Depression: Yes Hx Substance Use: Yes - Surgical History Hx Section: Yes (x1) - Anesthesia Hx Anesthesia: Yes Hx Anesthesia Reactions: No Hx Malignant Hyperthermia: No Family/Social History - Physician Review Nursing Documentation Reviewed: Yes Family/Social History: Unknown Family HX Smoking Status: Light Smoker < 10 Cigarettes Daily Hx Alcohol Use: No Hx Substance Use: Yes Substance used: marijuana Allergies/Home Meds Allergies/Adverse Reactions: Allergies No Known Allergies Allergy (Verified 10/17/16 13:30) Home Medications: Home Meds Medication Instructions Recorded Confirmed Lorazepam [Ativan] 1 mg PO BID 10/09/16 10/17/16 Review of Systems - Review of Systems Respiratory: absent: SOB Cardiovascular: absent: Chest Pain Gastrointestinal: absent: Diarrhea, Nausea, Vomiting Neurological: Dizziness Psychiatric: absent: Suicidal Ideation Physical Exam Vital Signs Reviewed: Yes Vital Signs Temp Pulse Resp BP Pulse Ox 10/17/16 18:20 98 F 75 20 124/85 100 10/17/16 17:54 89 20 119/62 100 10/17/16 13:20 98.9 F 99 H 20 117/75 99 Temperature: Afebrile Blood Pressure: Normal Pulse: Regular Respiratory Rate: Normal Appearance: Positive for: Well-Appearing, Non-Toxic, Comfortable Pain Distress: None Mental Status: Positive for: Alert and Oriented X 3 - Systems Exam Head: Present: Atraumatic, Normocephalic Pupils: Present: PERRL Extroacular Muscles: Present: EOMI Mouth: Present: Moist Mucous Membranes Neck: Present: Normal Range of Motion Respiratory/Chest: Present: Clear to Auscultation, Good Air Exchange. No: Respiratory Distress, Accessory Muscle Use Cardiovascular: Present: Regular Rate and Rhythm, Normal S1, S2. No: Murmurs Abdomen: Present: Normal Bowel Sounds. No: Tenderness, Distention, Peritoneal Signs Upper Extremity: Present: Normal Inspection. No: Cyanosis, Edema Lower Extremity: Present: Normal Inspection. No: Edema Neurological: Present: GCS=15, CN II-XII Intact, Speech Normal, Motor Func Grossly Intact, Normal Sensory Function, Other (No focal deficits. drowsy. ) Skin: Present: Warm, Dry, Normal Color. No: Rashes Psychiatric: Present: Alert, Oriented x 3 Medical Decision Making ED Course and Treatment: 10/17/16 14:23 Progress Notes: EKG: Ordered, reviewed, and independently interpreted the EKG. Rate : 91 BPM Rhythm : NSR Interpretation : No ST-segment elevations or depressions, no T-wave inversions, normal intervals. the pts mother voiced concern of overdose although the pt denies this on further questioning the pt requests psychiatric admission. she reports feeling depressed. - Lab Interpretations Lab Results: 10/17/16 11:45 10/17/16 11:45 Lab Results 10/17/16 14:35: Urine Opiates Screen Negative, Urine Methadone Screen Negative, Ur Barbiturates Screen Negative, Ur Phencyclidine Scrn Negative, Ur Amphetamines Screen Negative, U Benzodiazepines Scrn Positive H, U Oth Cocaine Metabols Negative, U Cannabinoids Screen Negative 10/17/16 14:35: Urine Color Yellow, Urine Appearance Clear, Urine pH 8.0, Ur Specific [place] 1.010, Urine Protein Negative, Urine Glucose (UA) Negative, Urine Ketones Negative, Urine Blood Negative, Urine Nitrate Negative, Urine Bilirubin Negative, Urine Urobilinogen 0.2, Ur Leukocyte Esterase Negative, Urine HCG, Qual Negative 10/17/16 11:45: Alcohol, Quantitative < 10 10/17/16 11:45: Salicylates < 1 L, Acetaminophen < 10.0 L 10/17/16 11:45: Sodium 142, Potassium 4.2, Chloride 104, Carbon Dioxide 28, Anion Gap 14, BUN 8, Creatinine 0.9, Est GFR ( Amer) > 60, Est GFR (Non- Af Amer) > 60, Random Glucose 87, Calcium 9.4, Total Bilirubin 0.2, AST 31, ALT 29, Alkaline Phosphatase 67, Troponin I < 0.01, Total Protein 7.3, Albumin 4.0, Globulin 3.3, Albumin/Globulin Ratio 1.2 10/17/16 11:45: WBC 5.8 D, RBC 4.20, Hgb 12.6, Hct 37.3, MCV 88.8, MCH 30.0, MCHC 33.8, RDW 14.2, Plt Count 215, MPV 9.6, Gran % 49.5 L, Lymph % (Auto) 30.3 , [place] % (Auto) 11.5 H, Eos % (Auto) 8.4 H, Baso % (Auto) 0.3, Gran # 2.89, Lymph # 1.8, [place] # 0.7 H, Eos # 0.5, Baso # 0.02 - RAD Interpretation Radiology Orders: 10/17/16 14:05 CHEST PORTABLE [RAD] Stat 10/17/16 14:06 HEAD W/O CONTRAST [CT] Stat - Medication Orders Current Medication Orders: Discontinued Medications Sodium Chloride (Sodium Chloride 0.9%) 1,000 mls @ 999 mls/hr IV .[id number] STA Stop: 10/17/16 15:06 Last Admin: 10/17/16 14:50 Dose: 999 mls/hr Lorazepam (Ativan) 1 mg PO ONCE ONE PRN Reason: Protocol Stop: 10/17/16 22:19 - Scribe Statement The provider has reviewed the documentation as recorded by the Yves Austin Provider Scribe Attestation: All medical record entries made by the Scribe were at my direction and personally dictated by me. I have reviewed the chart and agree that the record accurately reflects my personal performance of the history, physical exam, medical decision making, and the department course for this patient. I have also personally directed, reviewed, and agree with the discharge instructions and disposition. Disposition/Present on Arrival - Present on Arrival Any Indicators Present on Arrival: No History of DVT/PE: No History of Uncontrolled Diabetes: No Urinary Catheter: No History of Decub. Ulcer: No History Surgical Site Infection Following: None - Disposition Have Diagnosis and Disposition been Completed?: Yes Diagnosis: Bipolar 1 disorder Disposition: HOSPITALIZED Disposition Time: 16:31 Patient Problems: Current Active Problems Problem Status Onset Bipolar 1 disorder Acute Condition: STABLE
[2016-10-17 14:49] LABS: URINE BILIRUBIN NEGATIVE (NEGATIVE); URINE BLOOD NEGATIVE (NEGATIVE); URINE GLUCOSE (UA) NEGATIVE (NEGATIVE); URINE LEUKOCYTE ESTERASE NEGATIVE Leu/uL (NEGATIVE); URINE NITRATE NEGATIVE (NEGATIVE); URINE PROTEIN NEGATIVE mg/dL (<30 mg/dL); URINE UROBILINOGEN 0.2 E.U./dL (<1 E.U./dL)
[2016-10-17 14:50] LABS: URINE APPEARANCE CLEAR (CLEAR); URINE COLOR YELLOW (YELLOW)
[2016-10-17 14:53] LABS: HCG,QUALITATIVE URINE NEGATIVE (NEGATIVE)
[2016-10-17 14:58] LABS: BASO # 0.02 K/mm3 (0.0-2.0); BASO % 0.3 % (0.0-3.0); EOS # 0.5 (0.0-0.7); EOS % 8.4 % (1.5-5.0); GRAN # 2.89 (1.4-6.5); GRAN % 49.5 % (50.0-68.0); HEMOGLOBIN 12.6 gm/dL (12.0-16.0); LYMPH # 1.8 (1.2-3.4); LYMPH % 30.3 % (22.0-35.0); MEAN CELL VOLUME 88.8 fL (80.0-105.0); MEAN CORPUSCULAR HGB CONC 33.8 g/dl (31.0-37.0); MEAN PLATELET VOLUME 9.6 fl (7.0-11.0); MONO # 0.7 (0.1-0.6); MONO % 11.5 % (1.0-6.0); PLATELET COUNT 215 10^3/uL (120.0-450.0); RED CELL DISTRIBUTION WIDTH 14.2 % (11.5-14.5); WHITE BLOOD COUNT 5.8 10^3/ul (4.5-11.0)
[2016-10-17 15:05] LABS: BARBITURATES, UR NEGATIVE (NEGATIVE); BENZODIAZEPINES, UR POSITIVE (NEGATIVE); OPIATES, UR NEGATIVE (NEGATIVE); PHENCYCLIDINE, UR NEGATIVE (NEGATIVE)
[2016-10-17 15:08] LABS: ACETAMINOPHEN < 10.0 ug/ml (10.0-20.0); ALB/GLOB RATIO 1.2 (1.1-1.8); ALT/SGPT 29 U/L (7-56); AST/SGOT 31 U/L (15-39); BLOOD UREA NITROGEN 8 mg/dL (7-21); CALCIUM 9.4 mg/dL (8.4-10.5); GFR AFRICAN-AMERICAN > 60; GFR NON-AFRICAN AMERICAN > 60; SALICYLATE < 1 mg/dL (2.0-20.0)
--- NOTE | 2016-10-17 15:15 | CARD ---
APPROVED REPORT EKG Measurement Heart [id number] <Conclusion> Normal sinus rhythm Normal ECG
[2016-10-17 15:20] LABS: TROPONIN I < 0.01 ng/mL
--- NOTE | 2016-10-17 16:46 | CT ---
PROCEDURE: CT HEAD WITHOUT CONTRAST. HISTORY: Altered mental status COMPARISON: None available. TECHNIQUE: Axial computed tomography images were obtained through the head/brain without intravenous contrast. Radiation dose: Total exam DLP = 774.23 mGy-cm. This CT exam was performed using one or more of the following dose reduction techniques: Automated exposure control, adjustment of the mA and/or kV according to patient size, and/or use of iterative reconstruction technique. FINDINGS: HEMORRHAGE: No intracranial hemorrhage. BRAIN: Ortiz-white matter differentiation is preserved. There is no mass, mass effect or abnormal extra-axial fluid collection. VENTRICLES: The ventricles are normal in size, shape and configuration. CALVARIUM: The skull base and calvarium are normal. PARANASAL SINUSES: Predominantly clear on. MASTOID AIR CELLS: Predominantly clear. OTHER FINDINGS: None. IMPRESSION: No acute intracranial abnormality.
--- NOTE | 2016-10-17 17:37 | RAD ---
HISTORY: ams COMPARISON: No prior. FINDINGS: LUNGS: No active pulmonary disease. PLEURA: No significant pleural effusion identified, no pneumothorax apparent. CARDIOVASCULAR: Normal. OSSEOUS STRUCTURES: No significant abnormalities. VISUALIZED UPPER ABDOMEN: Normal. OTHER FINDINGS: None. IMPRESSION: No acute cardiopulmonary disease or significant interval change compare to 05/22/2016 chest radiograph.
[2016-10-17 17:56] VITALS: O2SAT 100
[2016-10-17] MEDS ORDERED: Divalproex 500 mg DR(BID formulation) PO ONE (22:20)
--- NOTE | 2016-10-18 01:58 | PCM.BM ---
Treatment Plan Problems - Problems identified on initial assessmt depression Date Initiated: 10/17/16 Time Initiated: 01:57 Assessment reference: NA Status: Active Priority: 1
--- NOTE | 2016-10-18 01:59 | PCM.BM ---
<Chad Cartwright O - Last Filed: 10/18/16 01:58> Treatment Plan Problems - Problems identified on initial assessmt depression Date Initiated: 10/17/16 Time Initiated: 01:57 Assessment reference: NA Status: Active Priority: 1 Treatment assets and liabiliti Patient Assests: cooperative, ADL independent, good support system, good past tx response Patient Liabilities: substance abuse - Milieu Protocol Maintain good personal hygiene: daily Encourage regular showers, daily Remind patient to perform daily oral care, daily Assist patient to perform ADL's Maintain personal safety: daily Educate patient to report safety concerns to staff, daily Monitor environment for contraband/sharps Medication safety: Monitor for expected outcome, potential side effects: daily, Assess barriers to learning: daily, Assess readiness for medication education: daily Family Contact Family involvement: Family/SO is involved Family contact: Patient agrees to contact Family contact name: [place] Discharge/Continuing Care - Education Needs Education Needs: Patient Medication, Patient Diagnosis/Disease Process, Patient Coping Skills, Patient Anger Management skills, Patient Placement options - Discharge Discharge Criteria: Normal sleep pattern <Nayeli Fox Y - Last Filed: 10/19/16 16:21> Family Contact - Outside Agency none Care involvment: N/A Discharge/Continuing Care - Discharge Discharge Criteria: Tolerates medication w/o severe side effects
[2016-10-18 10:00] LABS: HDL CHOLESTEROL 56 mg/dL (29-60)
[2016-10-18] MEDS ORDERED: Divalproex 500 mg DR(BID formulation) PO SCH ×2 (10:00→22:00)
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
[2016-10-18] MEDS: Divalproex 500 mg DR(BID formulation) PO SCH (10:19)
[2016-10-18 10:36] LABS: LDL CHOLESTEROL 80 mg/dL (0-129)
[2016-10-18] MEDS ORDERED: Alum-Mag Hydrox-Simethicone Susp (30 mL) PO PRN (21:08)
[2016-10-19] MEDS ORDERED: Levothyroxine 75 MCG TAB PO SCH (06:00)
[2016-10-19 07:48] VITALS: BP 104/62; PULSE 76; TEMP 97.4
[2016-10-19] MEDS: Divalproex 500 mg DR(BID formulation) PO SCH (09:23)
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
--- NOTE | 2016-10-19 19:23 | CP.PCM.CON ---
<Rex Fuentes - Last Filed: 10/19/16 19:34> History of Present Illness - History of Present Illness History of Present Illness: 26 yo female with PMHx of multiple mood/affective disorders, hypothyroidism, ( history of) seizures who was admitted to [facility] in-patient psychiary unit for suicidal ideation and depression. She was discharged/signed out AMA as of later today. She states she must attend a court date tomorrow. We were asked to evaluate the patient medically. Patient had no acute complaints at the time of my encounter. Review of Systems - Constitutional Constitutional: Fatigue, Malaise - Cardiovascular Cardiovascular: absent: Chest Pain, Diaphoresis, Dyspnea - Respiratory Respiratory: absent: Cough, Dyspnea - Psychiatric Psychiatric: Depression, Suicidal Ideation - Endocrine Endocrine: absent: Cold Intolorance, Heat Intolorance - Hematologic/Lymphatic Hematologic: absent: Easy Bleeding, Easy Bruising Past Patient History - Infectious Disease Hx of Infectious Diseases: None - Tetanus Immunizations Tetanus Immunization: Unknown - Past Medical History & Family History Past Medical History?: Yes - Past Social History Smoking Status: Light Smoker < 10 Cigarettes Daily - CARDIAC Hx Cardiac Disorders: No Hx Hypertension: No - PULMONARY Hx Respiratory Disorders: No Hx Tuberculosis: No - NEUROLOGICAL Hx Neurological Disorder: Yes Hx Seizures: Yes - HEENT Hx HEENT Problems: No - RENAL Hx Chronic Kidney Disease: Yes Hx Pyelonephritis: Yes - ENDOCRINE/METABOLIC Hx Endocrine Disorders: Yes Hx Hypothyroidism: Yes - HEMATOLOGICAL/ONCOLOGICAL Hx Blood Disorders: No Hx Cancer: No - INTEGUMENTARY Hx Dermatological Problems: No - MUSCULOSKELETAL/RHEUMATOLOGICAL Hx Musculoskeletal Disorders: Yes Hx Back Pain: Yes Hx Falls: No Other/Comment: spondylosis - GASTROINTESTINAL Hx Gastrointestinal Disorders: No - GENITOURINARY/GYNECOLOGICAL Hx Genitourinary Disorders: No Hx Sexually Transmitted Disorders: No - PSYCHIATRIC Hx Psychophysiologic Disorder: Yes Hx Bipolar Disorder: Yes Hx Depression: Yes Hx Substance Use: Yes - SURGICAL HISTORY Hx Section: Yes (x1) - ANESTHESIA Hx Anesthesia: Yes Hx Anesthesia Reactions: No Hx Malignant Hyperthermia: No Meds Home Medications: Home Medication List Medication Instructions Recorded Confirmed Type Divalproex [Depakote DR(*BID*)] 1,000 mg PO HS tcp 10/19/16 Rx Divalproex [Depakote DR(*BID*)] 500 mg PO DAILY tcp 10/19/16 Rx FLUoxetine [Prozac] 20 mg PO QAM cap 10/19/16 Rx LORazepam [Ativan] 0.5 mg PO AMHS tab 10/19/16 Rx Levothyroxine [Synthroid] 75 mcg PO 0600 tab 10/19/16 Rx QUEtiapine [Seroquel] 100 mg PO HS tab 10/19/16 Rx Allergies/Adverse Reactions: Allergies Allergy/AdvReac Type Severity Reaction Status Date / Time No Known Allergies Allergy Verified 10/18/16 00:29 Physical Exam - Constitutional Appears: Non-toxic, No Acute Distress - Head Exam Head Exam: ATRAUMATIC, NORMOCEPHALIC - Eye Exam Eye Exam: EOMI, Normal appearance, PERRL - ENT Exam ENT Exam: Mucous Membranes Moist, Normal Exam - Neck Exam Neck exam: Positive for: Normal Inspection Additional comments: no masses appreciated on neck exam - Cardiovascular Exam Cardiovascular Exam: RRR, +S1, +S2 - GI/Abdominal Exam GI & Abdominal Exam: Normal Bowel Sounds, Soft. absent: Rebound, Rigid - Rectal Exam Rectal Exam: Deferred - Neurological Exam Neurological exam: CN II-XII Intact, Oriented x3 - Psychiatric Exam Additional comments: deferred - Skin Skin Exam: Dry, Intact, Normal Color Results - Vital Signs Recent Vital Signs: Last Vital Signs Temp 97.4 F L 10/19/16 07:47 Pulse 76 10/19/16 07:47 Resp 20 10/19/16 07:47 BP 104/62 10/19/16 07:47 Pulse Ox 100 10/17/16 18:20 - Labs Result Diagrams: 10/17/16 11:45 10/17/16 11:45 Labs: Laboratory Results - last 24 hr 10/18/16 10/19/16 09:40 09:57 Hemoglobin A1c 5.4 TSH 3rd Generation 5.45 H - EKG Data EKG Interpreted by: Myself EKG shows normal: Sinus rhythm Rate: Normal - EKG Data When Compared to Previous EKG: No Significant Change Assessment & Plan - Assessment and Plan (Free Text) Assessment: 1) Hypothyroidism Discussed with patient the need to take Levothyroxine daily, 30 minutes before breakfast and not to be taken with any other medication. Patient advised to f/u with PMD and to follow all recommendations per psychiatric team. 2) Depression with suicidal ideation -Not significant enough to warrant further in patient psychiatry treatment. - Patient d/c, signed out AMA - Date & Time Date: 10/19/16 Time: 08:50 <Gus Méndez - Last Filed: 10/20/16 09:30> Results - Vital Signs Recent Vital Signs: Last Vital Signs Temp 97.4 F L 10/19/16 07:47 Pulse 76 10/19/16 07:47 Resp 20 10/19/16 07:47 BP 104/62 10/19/16 07:47 Pulse Ox 100 10/17/16 18:20 - Labs Result Diagrams: 10/17/16 11:45 10/17/16 11:45 Labs: Laboratory Results - last 24 hr 10/19/16 09:57 TSH 3rd Generation 5.45 H Attending/Attestation - Attestation I have personally seen and examined this patient.: Yes I have fully participated in the care of the patient.: Yes I have reviewed all pertinent clinical information: Yes Notes (Text): 10/19/16 MEDICAL CONSULTATION 26 year old female with past medical history of mood/affective disorder, anxiety , substance abuse and hypothyroidism who presented with depressed mood and possible suicidal ideation. Medical consultation was requested for medical evaluation. Labs were reviewed. Utox was positive for benzodiazepines. TSH is 5.45. She is on synthroid. Recommended to repeat TFTs in 6-8 weeks. Continue with further management as per psychiatrist. Thank you Dr. Solano for allowing us to participate in the care of this patient. Please re-consult as needed. Gus Méndez MD Hospitalist.
== END 2016-10-19 16:04 | disposition left against medical advice (07) | DRG 430 ==
LOC: ED 13:14 → PSYC 16:31
PROVIDERS: ADMIT Psychiatry & Neurology Psychiatry; ATTEND Psychiatry & Neurology Psychiatry
DX: F31.9 Bipolar disorder, unspecified (principal); F60.2 Antisocial personality disorder; F63.9 Impulse disorder, unspecified; F10.10 Alcohol abuse, uncomplicated; F41.9 Anxiety disorder, unspecified; E03.9 Hypothyroidism, unspecified; Y90.0 Blood alcohol level of less than 20 mg/100 ml

== ENCOUNTER 2017-01-01 03:48 | Emergency (ER) | payer MEDICAID ==
[2017-01-01 03:59] VITALS: BMI 31.7
--- NOTE | 2017-01-01 04:34 | ED PDOC ---
Arrival/HPI - General Chief Complaint: Psychiatric Evaluation Time Seen by Provider: 01/01/17 04:02 Historian: Patient - History of Present Illness Narrative History of Present Illness (Text): 01/01/17 04:30 Jenny Mcleod is a 26 year old female brought in by EMS who is presented to emergency department for "manic state." As per EMS, mother called EMS however patient is unsure why. Patient states "my family think I'm a joke." Patient denies any suicidal ideation or any other complaints at this time. In Emergency department, patient is responding to external stimuli while she is the only one in her room. Time/Duration: 4-6 hours Symptom Course: Unchanged Activities at Onset: Rest Context: Home Past Medical History - Provider Review Nursing Documentation Reviewed: Yes - Infectious Disease Hx of Infectious Diseases: None - Tetanus Immunization Tetanus Immunization: Unknown - Cardiac Hx Cardiac Disorders: No Hx Hypertension: No - Pulmonary Hx Respiratory Disorders: No Hx Tuberculosis: No - Neurological Hx Neurological Disorder: Yes Hx Seizures: Yes - HEENT Hx HEENT Disorder: No - Renal Hx Renal Disorder: Yes Hx Pyelonephritis: Yes - Endocrine/Metabolic Hx Endocrine Disorders: Yes Hx Hypothyroidism: Yes - Hematological/Oncological Hx Blood Disorders: No Hx Cancer: No - Integumentary Hx Dermatological Disorder: No - Musculoskeletal/Rheumatological Hx Musculoskeletal Disorders: Yes Hx Back Pain: Yes Hx Falls: No Other/Comment: spondylosis - Gastrointestinal Hx Gastrointestinal Disorders: No - Genitourinary/Gynecological Hx Genitourinary Disorders: No Hx Sexually Transmitted Diseases: No - Psychiatric Hx Psychophysiologic Disorder: Yes Hx Bipolar Disorder: Yes Hx Depression: Yes Hx Substance Use: Yes - Surgical History Hx Section: Yes (x1) - Anesthesia Hx Anesthesia: Yes Hx Anesthesia Reactions: No Hx Malignant Hyperthermia: No Family/Social History - Physician Review Nursing Documentation Reviewed: Yes Family/Social History: No Known Family HX Smoking Status: Light Smoker < 10 Cigarettes Daily Hx Alcohol Use: No Hx Substance Use: Yes Substance used: marijuana Allergies/Home Meds Allergies/Adverse Reactions: Allergies No Known Allergies Allergy (Verified 10/18/16 00:29) Home Medications: Home Meds Medication Instructions Recorded Confirmed Lorazepam [Ativan] 1 mg PO BID 10/09/16 01/01/17 Review of Systems - Physician Review All systems were reviewed & negative as marked: Yes - Review of Systems Constitutional: absent: Fevers, Night Sweats Eyes: absent: Vision Changes ENT: absent: Hearing Changes, Epistaxis Respiratory: absent: SOB, Cough Cardiovascular: absent: Chest Pain Gastrointestinal: absent: Abdominal Pain Genitourinary Female: absent: Dysuria, Frequency, Hematuria Musculoskeletal: absent: Arthralgias, Back Pain Skin: absent: Rash, Pruritis Neurological: absent: Headache Endocrine: absent: Diaphoresis Hemo/Lymphatic: absent: Adenopathy Psychiatric: Other ("manic state") Physical Exam Vital Signs Temp Pulse Resp BP Pulse Ox 01/01/17 04:35 98.3 F 96 H 17 143/80 98 - Systems Exam Head: Present: Atraumatic, Normocephalic Pupils: Present: PERRL Extroacular Muscles: Present: EOMI Conjunctiva: Present: Normal Mouth: Present: Moist Mucous Membranes Neck: Present: Normal Range of Motion Respiratory/Chest: Present: Clear to Auscultation, Good Air Exchange. No: Respiratory Distress, Accessory Muscle Use Cardiovascular: Present: Regular Rate and Rhythm, Normal S1, S2. No: Murmurs Abdomen: Present: Normal Bowel Sounds. No: Tenderness, Distention, Peritoneal Signs Back: Present: Normal Inspection Upper Extremity: Present: Normal Inspection. No: Cyanosis, Edema Lower Extremity: Present: Normal Inspection. No: Edema Neurological: Present: GCS=15, CN II-XII Intact, Speech Normal Skin: Present: Warm, Dry, Normal Color. No: Rashes Psychiatric: Present: Other (pressured speech) Medical Decision Making ED Course and Treatment: per psych pt [place] [facility] [place] [facility] [place] care signed out to Dr Dinero - Lab Interpretations Lab Results: 01/01/17 06:25 01/01/17 06:25 Lab Results 01/01/17 06:25: Alcohol, Quantitative < 10 01/01/17 06:25: Salicylates < 1 L, Acetaminophen < 10.0 L 01/01/17 06:25: Sodium 140, Potassium 4.2, Chloride 100, Carbon Dioxide 30, Anion Gap 14, BUN 13, Creatinine 1.2, Est GFR ( Amer) > 60, Est GFR (Non- Af Amer) 54, Random Glucose 87, Calcium 9.7, Total Bilirubin 0.5, AST 30, ALT 35 , Alkaline Phosphatase 75, Total Protein 8.1, Albumin 4.9 H, Globulin 3.3, Albumin/Globulin Ratio 1.5 01/01/17 06:25: WBC 12.4 H D, RBC 4.55, Hgb 13.7, Hct 41.0, MCV 90.1, MCH 30.1, MCHC 33.4, RDW 14.3, Plt Count 225, MPV 9.9, Gran % 69.3 H, Lymph % (Auto) 16.9 L, Long % (Auto) 10.8 H, Eos % (Auto) 2.8, Baso % (Auto) 0.2, Gran # 8.62 H, Lymph # 2.1, Long # 1.3 H, Eos # 0.4, Baso # 0.02 - Medication Orders Current Medication Orders: Discontinued Medications Diphenhydramine HCl (Benadryl) 50 mg IM STAT STA Stop: 01/01/17 06:17 Haloperidol Lactate (Haldol) 5 mg IM STAT STA PRN Reason: Protocol Stop: 01/01/17 05:00 Last Admin: 01/01/17 05:11 Dose: 5 mg IM Administration Charges Document 01/01/17 05:11 JO (Rec: 01/01/17 05:11 [id number] Charges for Administration # of IM Administrations 1 Lorazepam (Ativan) 2 mg IM ONCE ONE PRN Reason: Protocol Stop: 01/01/17 05:00 Last Admin: 01/01/17 05:11 Dose: 2 mg IM Administration Charges Document 01/01/17 05:11 JO (Rec: 01/01/17 05:11 [id number] Charges for Administration # of IM Administrations 1 - Scribe Statement The provider has reviewed the documentation as recorded by the Yves Forte Provider Scribe Attestation: All medical record entries made by the Rayshawnibmargo were at my direction and personally dictated by me. I have reviewed the chart and agree that the record accurately reflects my personal performance of the history, physical exam, medical decision making, and the department course for this patient. I have also personally directed, reviewed, and agree with the discharge instructions and disposition. Disposition/Present on Arrival - Present on Arrival Any Indicators Present on Arrival: No History of DVT/PE: No History of Uncontrolled Diabetes: No Urinary Catheter: No History of Decub. Ulcer: No History Surgical Site Infection Following: None - Disposition Have Diagnosis and Disposition been Completed?: No Diagnosis: Bipolar 1 disorder Disposition Time: 07:00 Condition: GUARDED Forms: [employer] (Sami)
[2017-01-01] MEDS ORDERED: DiphenhydrAMINE 50 mg/ml Inj IM STA (06:16)
[2017-01-01 06:34] LABS: BASO # 0.02 K/mm3 (0.0-2.0); BASO % 0.2 % (0.0-3.0); EOS # 0.4 (0.0-0.7); EOS % 2.8 % (1.5-5.0); GRAN # 8.62 (1.4-6.5); GRAN % 69.3 % (50.0-68.0); LYMPH # 2.1 (1.2-3.4); LYMPH % 16.9 % (22.0-35.0); MEAN CELL VOLUME 90.1 fl (80.0-105.0); MEAN CORPUSCULAR HEMOGLOBIN 30.1 pg (25.0-35.0); MEAN CORPUSCULAR HGB CONC 33.4 g/dl (31.0-37.0); MEAN PLATELET VOLUME 9.9 fl (7.0-11.0); MONO # 1.3 (0.1-0.6); MONO % 10.8 % (1.0-6.0); RED CELL DISTRIBUTION WIDTH 14.3 % (11.5-14.5); WHITE BLOOD COUNT 12.4 10^3/ul (4.5-11.0)
[2017-01-01 06:41] LABS: ALB/GLOB RATIO 1.5 (1.1-1.8); ALKALINE PHOSPHATASE 75 U/L (38-126); ALT/SGPT 35 U/L (7-56); AST/SGOT 30 U/L (14-36); BILIRUBIN,TOTAL 0.5 mg/dL (0.2-1.3); BLOOD UREA NITROGEN 13 mg/dL (7-21); CALCIUM 9.7 mg/dL (8.4-10.5); CARBON DIOXIDE 30 mmol/L (21-33); CHLORIDE 100 mmol/L (95-110); GFR AFRICAN-AMERICAN > 60; GLUCOSE,RANDOM 87 mg/dL (70-110); POTASSIUM 4.2 mmol/L (3.6-5.0); SODIUM 140 mmol/L (132-148); TOTAL PROTEIN 8.1 g/dL (5.8-8.3)
--- NOTE | 2017-01-01 07:07 | ED PDOC ---
Physical Exam Vital Signs Reviewed: Yes Vital Signs Temp Pulse Resp BP Pulse Ox 01/02/17 01:30 78 16 124/76 99 01/01/17 21:41 98.0 F 93 H 18 128/73 100 01/01/17 16:48 98.4 F 98 H 18 108/68 98 01/01/17 12:12 98 H 18 139/98 H 98 01/01/17 09:01 110 H 16 118/71 100 01/01/17 06:00 88 18 140/80 97 01/01/17 04:35 98.3 F 96 H 17 143/80 98 Temperature: Afebrile Blood Pressure: Normal Pulse: Tachycardic Respiratory Rate: Normal Appearance: Positive for: Well-Appearing, Non-Toxic, Comfortable Pain Distress: None Mental Status: Positive for: Alert and Oriented X 3 Medical Decision Making ED Course and Treatment: 01/01/17 07:05: Case endorsed to me by Dr. Jara. Pending [facility] Screening. 01/01/17 08:07: Patient continues to pace around the emergency department and take off her clothes. She refuses to follow staff instruction or give urine sample. Additional sedation medications ordered. 01/01/17 08:34: Dr. Solano evaluated the patient and agrees with current management. Additional sedation ordered. 01/01/17 10:27 EKG: Ordered, reviewed, and independently interpreted the EKG. Rate : 110 BPM Rhythm : Sinus Tachycardia 01/01/17 10:46: The patient is medically cleared. CHEST X-RAY Dictator : Rodo Garner MD Report Date : 01/01/2017 10:54:06 IMPRESSION: No active disease. 01/01/17 15:07 [place] [facility] [place]/01/17 17:52 endorsed to lieutenant shift supervisor [place] [facility] [place]. - Lab Interpretations Lab Results: 01/01/17 06:25 01/01/17 06:25 Lab Results 01/01/17 10:32: Urine Color Yellow, Urine Appearance Clear, Urine pH 6.5, Ur Specific [place] <= 1.005, Urine Protein Negative, Urine Glucose (UA) Negative, Urine Ketones Negative, Urine Blood Trace-intact H, Urine Nitrate Negative, Urine Bilirubin Negative, Urine Urobilinogen 0.2, Ur Leukocyte Esterase Negative , Urine RBC 0 - 2, Urine WBC Negative, Urine HCG, Qual Negative 01/01/17 10:32: Urine Opiates Screen Negative, Urine Methadone Screen Negative, Ur Barbiturates Screen Negative, Ur Phencyclidine Scrn Negative, Ur Amphetamines Screen Negative, U Benzodiazepines Scrn Negative, U Oth Cocaine Metabols Negative, U Cannabinoids Screen Negative 01/01/17 06:25: Alcohol, Quantitative < 10 01/01/17 06:25: Salicylates < 1 L, Acetaminophen < 10.0 L 01/01/17 06:25: Sodium 140, Potassium 4.2, Chloride 100, Carbon Dioxide 30, Anion Gap 14, BUN 13, Creatinine 1.2, Est GFR ( Amer) > 60, Est GFR (Non- Af Amer) 54, Random Glucose 87, Calcium 9.7, Total Bilirubin 0.5, AST 30, ALT 35 , Alkaline Phosphatase 75, Total Protein 8.1, Albumin 4.9 H, Globulin 3.3, Albumin/Globulin Ratio 1.5 01/01/17 06:25: WBC 12.4 H D, RBC 4.55, Hgb 13.7, Hct 41.0, MCV 90.1, MCH 30.1, MCHC 33.4, RDW 14.3, Plt Count 225, MPV 9.9, Gran % 69.3 H, Lymph % (Auto) 16.9 L, [place] % (Auto) 10.8 H, Eos % (Auto) 2.8, Baso % (Auto) 0.2, Gran # 8.62 H, Lymph # 2.1, [place] # 1.3 H, Eos # 0.4, Baso # 0.02 - RAD Interpretation Radiology Orders: 01/01/17 08:07 CXR [CHEST PORTABLE] [RAD] Stat - Medication Orders Current Medication Orders: Ziprasidone (Geodon Inj) 20 mg IM Q6H PRN; Protocol PRN Reason: Agitation Last Admin: 01/02/17 06:09 Dose: 20 mg IM Administration Charges Document 01/02/17 06:09 SC (Rec: 01/02/17 06:09 SC [id number]) Injection Site MAR Injection Site Left Deltoid Charges for Administration # of IM Administrations 1 Discontinued Medications Diphenhydramine HCl (Benadryl) 50 mg IM STAT STA Stop: 01/01/17 06:17 Last Admin: 01/01/17 06:20 Dose: 50 mg IM Administration Charges Document 01/01/17 06:20 JOL (Rec: 01/01/17 06:58 [id number] Charges for Administration # of IM Administrations 1 Haloperidol Lactate (Haldol) 5 mg IM STAT STA PRN Reason: Protocol Stop: 01/01/17 05:00 Last Admin: 01/01/17 05:11 Dose: 5 mg IM Administration Charges Document 01/01/17 05:11 JOL (Rec: 01/01/17 05:11 [id number] Charges for Administration # of IM Administrations 1 Lorazepam (Ativan) 2 mg IM ONCE ONE PRN Reason: Protocol Stop: 01/01/17 05:00 Last Admin: 01/01/17 05:11 Dose: 2 mg IM Administration Charges Document 01/01/17 05:11 JOL (Rec: 01/01/17 05:11 [id number] Charges for Administration # of IM Administrations 1 Lorazepam (Ativan) 2 mg IM STAT STA PRN Reason: Protocol Stop: 01/01/17 08:06 Last Admin: 01/01/17 08:15 Dose: 2 mg IM Administration Charges Document 01/01/17 08:15 AD (Rec: 01/01/17 08:15 AD [facility] [place]-[id number]) Injection Site MAR Injection Site Right Gluteus Rohan Charges for Administration # of IM Administrations 1 Lorazepam (Ativan) 2 mg IM ONCE ONE PRN Reason: Protocol Stop: 01/02/17 03:44 Last Admin: 01/02/17 04:20 Dose: 2 mg IM Administration Charges Document 01/02/17 04:20 SC (Rec: 01/02/17 04:51 SC [id number]) Injection Site MAR Injection Site Right Deltoid Charges for Administration # of IM Administrations 1 Ziprasidone (Geodon Inj) 20 mg IM STAT STA PRN Reason: Protocol Stop: 01/01/17 08:35 Last Admin: 01/01/17 08:48 Dose: 20 mg IM Administration Charges Document 01/01/17 08:48 AD (Rec: 01/01/17 08:48 AD [facility] [place]-[id number]) Charges for Administration # of IM Administrations 1 - Scribe Statement The provider has reviewed the documentation as recorded by the Scribe Naomi Swartz Provider Scribe Attestation: All medical record entries made by the Scribe were at my direction and personally dictated by me. I have reviewed the chart and agree that the record accurately reflects my personal performance of the history, physical exam, medical decision making, and the department course for this patient. I have also personally directed, reviewed, and agree with the discharge instructions and disposition. Disposition/Present on Arrival - Present on Arrival Any Indicators Present on Arrival: No History of DVT/PE: No History of Uncontrolled Diabetes: No Urinary Catheter: No History of Decub. Ulcer: No History Surgical Site Infection Following: None - Disposition Have Diagnosis and Disposition been Completed?: Yes Diagnosis: Bipolar 1 disorder Disposition: HOSPITALIZED Disposition Time: 07:00 Patient Problems: Current Active Problems Problem Status Onset Bipolar 1 disorder Acute Condition: STABLE
--- NOTE | 2017-01-01 09:50 | CP.PCM.PCO ---
Addendum Addendum: 01/01/17 09:47 this auto service writer called to the pharmacy [facility] [phone] pt was on the following meds: levothyoxine 50mcg dialy all psych meds were filled 12/04/16 prescribed by , pt has one refill left for all meds: Depakote 500mg po tid Lexapro 10mg po daily Benztropine 1mg daily Gabapentin 600mg po bid Trazodone 100mg hs
--- NOTE | 2017-01-01 09:52 | CP.PCM.PCO ---
Physician Communication Note - Physician Communication Note Physician Communication Note: pt also was on Invega sustenna, unknown dose, due today
[2017-01-01 10:43] LABS: PH,URINE 6.5 (4.7-8.0); URINE BILIRUBIN NEGATIVE (NEGATIVE); URINE BLOOD TRACE-INTACT (NEGATIVE); URINE GLUCOSE (UA) NEGATIVE (NEGATIVE); URINE KETONE NEGATIVE (NEGATIVE); URINE LEUKOCYTE ESTERASE NEGATIVE Leu/uL (NEGATIVE); URINE PROTEIN NEGATIVE mg/dL (<30 mg/dL); URINE UROBILINOGEN 0.2 E.U./dL (<1 E.U./dL)
[2017-01-01 10:44] LABS: URINE APPEARANCE CLEAR (CLEAR); URINE COLOR YELLOW (YELLOW)
[2017-01-01 10:46] LABS: URINE RBC 0 - 2 /hpf (0-2); URINE WBC NEGATIVE /hpf (0-6)
--- NOTE | 2017-01-01 10:55 | RAD ---
HISTORY: pysch COMPARISON: 10/17/2016 FINDINGS: LUNGS: No active pulmonary disease. PLEURA: No significant pleural effusion identified, no pneumothorax apparent. CARDIOVASCULAR: Normal. OSSEOUS STRUCTURES: No significant abnormalities. VISUALIZED UPPER ABDOMEN: Normal. OTHER FINDINGS: None. IMPRESSION: No active disease.
--- NOTE | 2017-01-01 12:46 | CARD ---
APPROVED REPORT EKG Measurement Heart [id number] <Conclusion> Sinus tachycardia Otherwise normal ECG
--- NOTE | 2017-01-01 19:45 | CON ---
DATE: HISTORY OF PRESENT ILLNESS: The patient is a 26-year-old female, long debilitating history of bipolar disorder. The patient also has a history of polysubstance abuse and dependence, multiple admissions to the Psychiatric Inpatient care unit. The patient was brought in to the Emergency Room after mother called 911 for aggressive and agitated behavior. The patient also presented to be in manic stage, was not sleeping for past 2 days, and presented as extremely psychotic. A psychiatric consult was involved because overnight physician initiated it at [facility] and this auto service writer was rounding in the Emergency Room. The patient was seen. Collateral information was obtained from the patient's mother, discussed with the Emergency Room physician, Dr. Dinero as well as nursing staff. As per nursing staff, the patient was pacing and refused to give urine during sample, also presenting to be restless as well as very confused. This auto service writer attempted to speak to the patient, but there was no meaningful conversation that was available. The patient is pacing as well as staring at this auto service writer, not a very good historian. The patient's mother is next to the patient and her name is Venice, phone -number is [phone] as well as land line is [phone]. As per Venice, for the past 2 days, the patient was not sleeping. The patient is presenting to be psychotic and disorganized. The patient's mother is not sure if the patient is taking her medication as it was prescribed, but as per mother, the patient does not have history of being noncompliant with the medication. As per mother, the patient was stressed out because her son who is 5 years old was relegated with his father to [place] and at the present moment, the patient will be not able to see her son. The patient also had loss of her first son in 2006 and it was a traumatic event for the patient. OBJECTIVE: VITAL SIGNS: This auto service writer reviewed vital signs. Vital signs seem to be stable. Temperature 98.3, pulse is 111, blood pressure 118/71, respirations 16, and oxygen saturation is 100%. MENTAL STATUS EXAM: The patient presented to be disorganized, pacing in the emergency room, and medicated three times already. No eye contact. No meaningful conversation is available. The patient is confused and psychotic. There is no insight. Impulses are not predictable. MEDICATIONS: Reviewed. The patient was given haloperidol 5 mg IM as well as Ativan 2 mg as well as two doses of Ativan was given 2 mg as well as Geodon 20 mg IM was given as well. LABORATORY DATA: Labs reviewed. Hematology; WBC cells 12.4 and granulocytes 8.62. Chemistry reviewed. Toxicology; acetaminophen less than 10 and salicylates are less than 1, the rest is not available. IMPRESSION: This auto service writer is very familiar with this patient from the multiple admissions to the Psychiatric Inpatient unit. The patient usually was signing herself out even before completion of the treatment. As per history, the patient has bipolar disorder. The patient also has both substance abuse and dependence. This auto service writer is waiting for urine drug screen to be back. PLAN: Continue current management, [facility] screening process was initiated. The patient is waiting for screen nurse. The patient is on Invega Sustenna, dose is unknown, due is today. Collaterals were obtained from the mother, phone number is [phone] and land line is [phone], her name is Venice, this call for collaterals. This auto service writer suggests involuntary commitment because the patient has to have higher level of care. The patient's mother does not feel comfortable to accept the patient back home in this condition. Thank you very much for letting me to participate in the care of your patient. Should you have any questions, give me a call back. The patient will be screened and disposition will be made. Yadira Solano MD
[2017-01-01 21:41] VITALS: TEMP 98
[2017-01-02 05:45] VITALS: RESP 16
--- NOTE | 2017-01-02 07:57 | ED PDOC ---
Physical Exam Vital Signs Temp Pulse Resp BP Pulse Ox 01/02/17 01:30 78 16 124/76 99 01/01/17 21:41 98.0 F 93 H 18 128/73 100 01/01/17 16:48 98.4 F 98 H 18 108/68 98 01/01/17 12:12 98 H 18 139/98 H 98 01/01/17 09:01 110 H 16 118/71 100 01/01/17 06:00 88 18 140/80 97 01/01/17 04:35 98.3 F 96 H 17 143/80 98 Medical Decision Making ED Course and Treatment: 01/02/17 07:56 Case endorsed to me by Dr. Jara pending bed available for transfer to [facility]. 01/02/17 16:59 pt needed additional sedation in er as she became agited, slamming the door multiple times, creating a disturbance to other patients and staff. ativan 2 im ordered. pt now has bed at [facility] [place], pending transport - Lab Interpretations Lab Results: 01/01/17 06:25 01/01/17 06:25 Lab Results 01/01/17 10:32: Urine Color Yellow, Urine Appearance Clear, Urine pH 6.5, Ur Specific [place] <= 1.005, Urine Protein Negative, Urine Glucose (UA) Negative, Urine Ketones Negative, Urine Blood Trace-intact H, Urine Nitrate Negative, Urine Bilirubin Negative, Urine Urobilinogen 0.2, Ur Leukocyte Esterase Negative , Urine RBC 0 - 2, Urine WBC Negative, Urine HCG, Qual Negative 01/01/17 10:32: Urine Opiates Screen Negative, Urine Methadone Screen Negative, Ur Barbiturates Screen Negative, Ur Phencyclidine Scrn Negative, Ur Amphetamines Screen Negative, U Benzodiazepines Scrn Negative, U Oth Cocaine Metabols Negative, U Cannabinoids Screen Negative 01/01/17 06:25: Alcohol, Quantitative < 10 01/01/17 06:25: Salicylates < 1 L, Acetaminophen < 10.0 L 01/01/17 06:25: Sodium 140, Potassium 4.2, Chloride 100, Carbon Dioxide 30, Anion Gap 14, BUN 13, Creatinine 1.2, Est GFR ( Amer) > 60, Est GFR (Non- Af Amer) 54, Random Glucose 87, Calcium 9.7, Total Bilirubin 0.5, AST 30, ALT 35 , Alkaline Phosphatase 75, Total Protein 8.1, Albumin 4.9 H, Globulin 3.3, Albumin/Globulin Ratio 1.5 01/01/17 06:25: WBC 12.4 H D, RBC 4.55, Hgb 13.7, Hct 41.0, MCV 90.1, MCH 30.1, MCHC 33.4, RDW 14.3, Plt Count 225, MPV 9.9, Gran % 69.3 H, Lymph % (Auto) 16.9 L, [place] % (Auto) 10.8 H, Eos % (Auto) 2.8, Baso % (Auto) 0.2, Gran # 8.62 H, Lymph # 2.1, [place] # 1.3 H, Eos # 0.4, Baso # 0.02 - RAD Interpretation Radiology Orders: 01/01/17 08:07 CXR [CHEST PORTABLE] [RAD] Stat - Medication Orders Current Medication Orders: Ziprasidone (Geodon Inj) 20 mg IM Q6H PRN; Protocol PRN Reason: Agitation Last Admin: 01/02/17 06:09 Dose: 20 mg IM Administration Charges Document 01/02/17 06:09 SC (Rec: 01/02/17 06:09 SC [id number]) Injection Site MAR Injection Site Left Deltoid Charges for Administration # of IM Administrations 1 Discontinued Medications Diphenhydramine HCl (Benadryl) 50 mg IM STAT STA Stop: 01/01/17 06:17 Last Admin: 01/01/17 06:20 Dose: 50 mg IM Administration Charges Document 01/01/17 06:20 JOL (Rec: 01/01/17 06:58 [id number] Charges for Administration # of IM Administrations 1 Haloperidol Lactate (Haldol) 5 mg IM STAT STA PRN Reason: Protocol Stop: 01/01/17 05:00 Last Admin: 01/01/17 05:11 Dose: 5 mg IM Administration Charges Document 01/01/17 05:11 JOL (Rec: 01/01/17 05:11 [id number] Charges for Administration # of IM Administrations 1 Lorazepam (Ativan) 2 mg IM ONCE ONE PRN Reason: Protocol Stop: 01/01/17 05:00 Last Admin: 01/01/17 05:11 Dose: 2 mg IM Administration Charges Document 01/01/17 05:11 JOL (Rec: 01/01/17 05:11 JOL [id number]) Charges for Administration # of IM Administrations 1 Lorazepam (Ativan) 2 mg IM STAT STA PRN Reason: Protocol Stop: 01/01/17 08:06 Last Admin: 01/01/17 08:15 Dose: 2 mg IM Administration Charges Document 01/01/17 08:15 AD (Rec: 01/01/17 08:15 AD [facility] [id number][facility] Injection Site MAR Injection Site Right Gluteus Rohan Charges for Administration # of IM Administrations 1 Lorazepam (Ativan) 2 mg IM ONCE ONE PRN Reason: Protocol Stop: 01/02/17 03:44 Last Admin: 01/02/17 04:20 Dose: 2 mg IM Administration Charges Document 01/02/17 04:20 SC (Rec: 01/02/17 04:51 SC [id number]) Injection Site MAR Injection Site Right Deltoid Charges for Administration # of IM Administrations 1 Ziprasidone (Geodon Inj) 20 mg IM STAT STA PRN Reason: Protocol Stop: 01/01/17 08:35 Last Admin: 01/01/17 08:48 Dose: 20 mg IM Administration Charges Document 01/01/17 08:48 AD (Rec: 01/01/17 08:48 AD [id number]) Charges for Administration # of IM Administrations 1 Disposition/Present on Arrival - Present on Arrival Any Indicators Present on Arrival: No History of DVT/PE: No History of Uncontrolled Diabetes: No Urinary Catheter: No History of Decub. Ulcer: No History Surgical Site Infection Following: None - Disposition Have Diagnosis and Disposition been Completed?: Yes Diagnosis: Bipolar 1 disorder Disposition: HOSPITALIZED Disposition Time: 06:00 Condition: STABLE Referrals: Joseph Feng [Primary Care Provider] - Follow up with primary
[2017-01-02 16:00] VITALS: BP 115/80; PULSE 76; O2SAT 98
== END 2017-01-02 17:28 | disposition short-term general hospital (02) ==
LOC: ED 03:48 → ERH 01-02 14:12 → UNDOADMIN 01-02 14:12 → ED 01-02 17:28
DX: F31.9 Bipolar disorder, unspecified (principal); F17.210 Nicotine dependence, cigarettes, uncomplicated
CPT/HCPCS: 71010; 80053; 80320; 80324; 80329; 80345; 80346; 80349; 80353; 80358; 80361; 81001; 82948; 83992; 84703; 85025; 90791; 93005; 96372; 99285; J1200; J1630; J2060; J3486

== ENCOUNTER 2017-06-28 06:45 | Emergency (ER) | payer MEDICAID, OTHER ==
[2017-06-28 06:45] VITALS: BMI 31.7
[2017-06-28 07:08] VITALS: BP 116/79; PULSE 84; RESP 18; TEMP 97.8; O2SAT 100
[2017-06-28] MEDS ORDERED: Sodium Chloride 0.9% 1,000 ML IV STA (07:22)
--- NOTE | 2017-06-28 07:22 | ED PDOC ---
Arrival/HPI - General Chief Complaint: Abdominal Pain Time Seen by Provider: 06/28/17 07:00 Historian: Patient Past Medical History - Provider Review Nursing Documentation Reviewed: Yes - Infectious Disease Hx of Infectious Diseases: None - Tetanus Immunization Tetanus Immunization: Unknown - Cardiac Hx Cardiac Disorders: No Hx Hypertension: No - Pulmonary Hx Respiratory Disorders: No Hx Tuberculosis: No - Neurological Hx Neurological Disorder: Yes Hx Seizures: Yes - HEENT Hx HEENT Disorder: No - Renal Hx Renal Disorder: Yes Hx Pyelonephritis: Yes - Endocrine/Metabolic Hx Endocrine Disorders: Yes Hx Hypothyroidism: Yes - Hematological/Oncological Hx Blood Disorders: No Hx Cancer: No - Integumentary Hx Dermatological Disorder: No - Musculoskeletal/Rheumatological Hx Musculoskeletal Disorders: Yes Hx Back Pain: Yes Hx Falls: No Other/Comment: spondylosis - Gastrointestinal Hx Gastrointestinal Disorders: No - Genitourinary/Gynecological Hx Genitourinary Disorders: No Hx Sexually Transmitted Diseases: No - Psychiatric Hx Psychophysiologic Disorder: Yes Hx Bipolar Disorder: Yes Hx Depression: Yes Hx Substance Use: Yes - Surgical History Hx Section: Yes (x1) - Anesthesia Hx Anesthesia: Yes Hx Anesthesia Reactions: No Hx Malignant Hyperthermia: No Family/Social History - Physician Review Nursing Documentation Reviewed: Yes Family/Social History: Unknown Family HX Smoking Status: Light Smoker < 10 Cigarettes Daily Hx Alcohol Use: No Hx Substance Use: Yes Substance used: marijuana Allergies/Home Meds Allergies/Adverse Reactions: Allergies No Known Allergies Allergy (Verified 06/28/17 07:09) Home Medications: Home Meds Medication Instructions Recorded Confirmed Levothyroxine [Synthroid] 25 mcg PO DAILY 06/28/17 06/28/17 Physical Exam Vital Signs Reviewed: Yes Vital Signs Temp Pulse Resp BP Pulse Ox 06/28/17 07:05 97.8 F 84 18 116/79 100 Temperature: Afebrile Blood Pressure: Normal Pulse: Regular Respiratory Rate: Normal Appearance: Positive for: Well-Appearing, Non-Toxic, Comfortable Pain Distress: None Mental Status: Positive for: Alert and Oriented X 3 - Scribe Statement The provider has reviewed the documentation as recorded by the Scribe Elisha Mckeon Provider Scribe Attestation: All medical record entries made by the Scribe were at my direction and personally dictated by me. I have reviewed the chart and agree that the record accurately reflects my personal performance of the history, physical exam, medical decision making, and the department course for this patient. I have also personally directed, reviewed, and agree with the discharge instructions and disposition. Disposition/Present on Arrival - Present on Arrival History of DVT/PE: No History of Uncontrolled Diabetes: No Urinary Catheter: No History of Decub. Ulcer: No History Surgical Site Infection Following: None - Disposition
--- NOTE | 2017-06-28 07:31 | ED PDOC ---
Arrival/HPI - General Historian: Patient - History of Present Illness Time/Duration: 1 week Symptom Onset: Gradual Symptom Course: Worsening Quality: Aching, Cramping Activities at Onset: Rest <Grzegorz Casas - Last Filed: 06/28/17 08:33> <RosetteSidney - Last Filed: 06/28/17 14:19> - General Chief Complaint: Abdominal Pain Time Seen by Provider: 06/28/17 07:00 - History of Present Illness Narrative History of Present Illness (Text): 06/28/17 07:24 27 yo F here for nausea and vomiting x1 week. Patient wakes up nauseous, and is unable to eat anything all day. She has vomited 2-3 times daily for the past week, nonbloody, nonbilious. She also reports chills, diarrhea 4 times over the past three days, headache, abdominal pain, urinary frequency. She denies fever, chest pain, cough, dysuria. Patient has a history of epilepsy, hypothyroidism, anxiety, and depression. She has not been taking most of her medications for the past 4 months, besides her synthroid. She denies any recent travel or sick contacts. She is not sexually active, but LMP was May 08, whereas her periods are normally regular, monthly. (Grzegorz Casas) Past Medical History - Travel History Have you recently traveled outside [place] w/in the past 3 mons?: No - Infectious Disease Hx of Infectious Diseases: None - Tetanus Immunization Tetanus Immunization: Unknown - Cardiac Hx Cardiac Disorders: No Hx Hypertension: No - Pulmonary Hx Respiratory Disorders: No Hx Tuberculosis: No - Neurological Hx Neurological Disorder: Yes Hx Seizures: Yes - HEENT Hx HEENT Disorder: No - Renal Hx Renal Disorder: Yes Hx Pyelonephritis: Yes - Endocrine/Metabolic Hx Endocrine Disorders: Yes Hx Hypothyroidism: Yes - Hematological/Oncological Hx Blood Disorders: No Hx Cancer: No - Integumentary Hx Dermatological Disorder: No - Musculoskeletal/Rheumatological Hx Musculoskeletal Disorders: Yes Hx Back Pain: Yes Hx Falls: No Other/Comment: spondylosis - Gastrointestinal Hx Gastrointestinal Disorders: No - Genitourinary/Gynecological Hx Genitourinary Disorders: No Hx Sexually Transmitted Diseases: No - Psychiatric Hx Psychophysiologic Disorder: Yes Hx Bipolar Disorder: Yes Hx Depression: Yes Hx Substance Use: Yes - Surgical History Hx Section: Yes (x1) - Anesthesia Hx Anesthesia: Yes Hx Anesthesia Reactions: No Hx Malignant Hyperthermia: No <Grzegorz Casas - Last Filed: 06/28/17 08:33> - Provider Review Nursing Documentation Reviewed: Yes <JermainestevenSidney - Last Filed: 06/28/17 14:19> - Patient History Narrative Patient History: Anxiety, depression, epilepsy, hypothyroidism (Yessenia,Reynoldchelleram) Family/Social History Smoking Status: Light Smoker < 10 Cigarettes Daily Hx Alcohol Use: No Frequency of alcohol use: Socially Hx Substance Use: Yes Substance used: marijuana Route: Smoking/Inhalation <Grzegorz Casas - Last Filed: 06/28/17 08:33> - Physician Review Nursing Documentation Reviewed: Yes Family/Social History: Unknown Family HX <JermainestevenSidney - Last Filed: 06/28/17 14:19> Allergies/Home Meds <Grzegorz Casas - Last Filed: 06/28/17 08:33> <JermainestevenSidney - Last Filed: 06/28/17 14:19> Allergies/Adverse Reactions: Allergies No Known Allergies Allergy (Verified 06/28/17 07:09) Home Medications: Home Meds Medication Instructions Recorded Confirmed Levothyroxine [Synthroid] 25 mcg PO DAILY 06/28/17 06/28/17 Review of Systems - Review of Systems Constitutional: absent: Fevers Respiratory: absent: SOB Gastrointestinal: Nausea, Vomiting <Sidney Dinero - Last Filed: 06/28/17 14:19> Physical Exam Vital Signs Reviewed: Yes Temperature: Afebrile Blood Pressure: Normal Pulse: Regular Respiratory Rate: Normal Appearance: Positive for: Well-Appearing, Comfortable Pain Distress: Mild Mental Status: Positive for: Alert and Oriented X 3 - Systems Exam Head: Present: Atraumatic, Normocephalic Pupils: Present: PERRL Extroacular Muscles: Present: EOMI Conjunctiva: Present: Normal Mouth: Present: Moist Mucous Membranes Neck: Present: Normal Range of Motion Respiratory/Chest: Present: Clear to Auscultation, Good Air Exchange. No: Accessory Muscle Use Cardiovascular: Present: Regular Rate and Rhythm, Normal S1, S2 Abdomen: Present: Tenderness (mild, diffuse, worst in suprapubic region), Normal Bowel Sounds. No: Distention, Peritoneal Signs Upper Extremity: Present: Normal Inspection Lower Extremity: Present: Normal Inspection Neurological: Present: GCS=15, CN II-XII Intact Skin: Present: Warm, Diaphoretic Psychiatric: Present: Alert, Oriented x 3, Normal Insight, Normal Concentration <YesseniaReynoldchellececille - Last Filed: 06/28/17 08:33> Vital Signs Temp Pulse Resp BP Pulse Ox 06/28/17 07:05 97.8 F 84 18 116/79 100 Medical Decision Making Reassessment Condition: Re-examined, Unchanged <Grzegorz Casas - Last Filed: 06/28/17 08:33> - Lab Interpretations I have reviewed the lab results: Yes <Sidney Dinero - Last Filed: 06/28/17 14:19> ED Course and Treatment: 06/28/17 07:57 CBC, CMP, Lipase, UA, and urine test ordered Started IVF Lipase mildly elevated Bedside abdominal US unremarkable RLQ abdominal tenderness noted on exam Ordered CT A/P with IV contrast to assess for intraabdominal pathology, r/o appendicitis, unlikely given no fever or leukocytosis (Grzegorz Casas) 06/28/17 In agreement with resident note, which includes further HPI details. Patient was seen and evaluated with resident, came up with plan and treatment together. abdomianl pain with some rlq ttp on exam. requested ct abd pelvis. pt refuses. signs AMA 06/28/17 14:18 (Sidney Dinero) - Lab Interpretations Lab Results: 06/28/17 07:30 06/28/17 07:30 Lab Results 06/28/17 08:08: Free T4 1.05, TSH 3rd Generation 1.84 06/28/17 07:30: Sodium 142, Potassium 4.2, Chloride 106, Carbon Dioxide 25, Anion Gap 15, BUN 16, Creatinine 1.2, Est GFR ( Amer) > 60, Est GFR (Non- Af Amer) 54, Random Glucose 91, Calcium 10.1, Total Bilirubin 0.2, AST 18, ALT 21, Alkaline Phosphatase 83, Total Protein 7.4, Albumin 4.2, Globulin 3.2, Albumin/Globulin Ratio 1.3, Lipase 325 H 06/28/17 07:30: Urine Color Yellow, Urine Appearance Clear, Urine pH 6.0, Ur Specific [place] 1.020, Urine Protein Negative, Urine Glucose (UA) Negative, Urine Ketones Trace H, Urine Blood Negative, Urine Nitrate Negative, Urine Bilirubin Negative, Urine Urobilinogen 0.2, Ur Leukocyte Esterase Negative, Urine HCG, Qual Negative 06/28/17 07:30: PT 11.2, INR 0.97, APTT 31.4 06/28/17 07:30: WBC 8.0 D, RBC 4.84, Hgb 13.6, Hct 41.2, MCV 85.1 D, MCH 28.1 , MCHC 33.0, RDW 14.6 H, Plt Count 279, MPV 10.2, Gran % 67.4, Lymph % (Auto) 20.6 L, [place] % (Auto) 8.2 H, Eos % (Auto) 3.5, Baso % (Auto) 0.3, Gran # 5.37, Lymph # (Auto) 1.6, [place] # (Auto) 0.7 H, Eos # (Auto) 0.3, Baso # (Auto) 0.02 - Medication Orders Current Medication Orders: Discontinued Medications Sodium Chloride (Sodium Chloride 0.9%) 1,000 mls @ 1,000 mls/hr IV .Q1H STA Stop: 06/28/17 08:21 Last Admin: 06/28/17 07:34 Dose: 1,000 mls/hr eMAR Start Stop Document 06/28/17 07:34 [facility] (Rec: 06/28/17 07:35 [facility] [id number]) Intravenous Solution Start Date 06/28/17 Start Time 07:34 End Date 06/28/17 End time 08:34 Total Infusion Time 60 Ondansetron HCl (Zofran Inj) 4 mg IVP STAT STA Stop: 06/28/17 07:23 Last Admin: 06/28/17 07:35 Dose: 4 mg IVP Administration Document 06/28/17 07:35 [facility] (Rec: 06/28/17 07:35 [facility] [id number]) Charges for Administration # of IVP Administrations 1 <Grzegorz Casas - Last Filed: 06/28/17 08:33> - PA / STEP DOWN NURSE / Resident Statement / has reviewed & agrees with the documentation as recorded. / has examined the patient and agrees with the treatment plan. - Scribe Statement The provider has reviewed the documentation as recorded by the Scribe <Sidney Dinero - Last Filed: 06/28/17 14:19> - Scribe Statement Elisha Llamasdua Provider Scribe Attestation: All medical record entries made by the Scribe were at my direction and personally dictated by me. I have reviewed the chart and agree that the record accurately reflects my personal performance of the history, physical exam, medical decision making, and the department course for this patient. I have also personally directed, reviewed, and agree with the discharge instructions and disposition. (Sidney Dinero) Disposition/Present on Arrival - Present on Arrival Any Indicators Present on Arrival: No History of DVT/PE: No History of Uncontrolled Diabetes: No Urinary Catheter: No History of Decub. Ulcer: No History Surgical Site Infection Following: None - Disposition Have Diagnosis and Disposition been Completed?: No Disposition Time: 08:34 <Grzegorz Casas - Last Filed: 06/28/17 08:33> <Sidney Dinero - Last Filed: 06/28/17 14:19> - Disposition Diagnosis: Abdominal pain, Left against medical advice Disposition: AGAINST MEDICAL ADVICE Condition: UNKNOWN Discharge Instructions (ExitCare): Acute Abdomen (Belly Pain), Adult (DC), Nausea and Vomiting, Adult (DC) Additional Instructions: return to any er with worsening symptoms or concenrs. you are declining imaging today. you are able to return to any er with any concern Prescriptions: Ondansetron ODT [Zofran ODT] 4 mg PO Q8 PRN #20 odt PRN Reason: Nausea/Vomiting Referrals: [facility] [Outside] - Follow up with primary [facility] [place] [Outside] - Follow up with primary Darien Angel MD [Staff Provider] - Follow up with primary Forms: [employer] (Norwegian), WORK NOTE
[2017-06-28 07:41] LABS: BASO # 0.02 K/mm3 (0.0-2.0); BASO % 0.3 % (0.0-3.0); EOS # 0.3 (0.0-0.7); EOS % 3.5 % (1.5-5.0); GRAN # 5.37 (1.4-6.5); GRAN % 67.4 % (50.0-68.0); HEMOGLOBIN 13.6 g/dL (12.0-16.0); LYMPH # 1.6 (1.2-3.4); LYMPH % 20.6 % (22.0-35.0); MEAN CELL VOLUME 85.1 fl (80.0-105.0); MEAN CORPUSCULAR HEMOGLOBIN 28.1 pg (25.0-35.0); MEAN PLATELET VOLUME 10.2 fl (7.0-11.0); MONO # 0.7 (0.1-0.6); MONO % 8.2 % (1.0-6.0); RBC 4.84 10^6/uL (3.5-6.1); RED CELL DISTRIBUTION WIDTH 14.6 % (11.5-14.5); URINE BILIRUBIN NEGATIVE (NEGATIVE); URINE BLOOD NEGATIVE (NEGATIVE); URINE GLUCOSE (UA) NEGATIVE (NEGATIVE); URINE LEUKOCYTE ESTERASE NEGATIVE Leu/uL (NEGATIVE); URINE PROTEIN NEGATIVE mg/dL (<30 mg/dL); URINE UROBILINOGEN 0.2 E.U./dL (<1 E.U./dL)
[2017-06-28 07:45] LABS: URINE APPEARANCE CLEAR (CLEAR); URINE COLOR YELLOW (YELLOW)
[2017-06-28 07:46] LABS: HCG,QUALITATIVE URINE NEGATIVE (NEGATIVE)
[2017-06-28 07:50] LABS: ALB/GLOB RATIO 1.3 (1.1-1.8); ALBUMIN 4.2 g/dL (3.0-4.8); ALT/SGPT 21 U/L (7-56); AST/SGOT 18 U/L (14-36); BLOOD UREA NITROGEN 16 mg/dL (7-21); CALCIUM 10.1 mg/dL (8.4-10.5); GFR AFRICAN-AMERICAN > 60; GFR NON-AFRICAN AMERICAN 54; LIPASE 325 U/L (23-300)
[2017-06-28 07:57] LABS: INR 0.97 (0.93-1.08); PARTIAL THROMBOPLASTIN TIME 31.4 Seconds (25.1-36.5); PROTHROMBIN TIME 11.2 SECONDS (9.4-12.5)
[2017-06-28] MEDS ORDERED: Iohexol 350 MG/100 ML VIAL ONE (08:01)
[2017-06-28 08:37] LABS: FREE T4 1.05 ng/dL (0.78-2.19)
== END 2017-06-28 08:34 | disposition left against medical advice (07) ==
LOC: ED 06:45
DX: R10.9 Unspecified abdominal pain (principal); G40.909 Epilepsy, unspecified, not intractable, without status epilepticus
CPT/HCPCS: 80053; 81003; 83690; 84439; 84443; 84703; 85025; 85610; 85730; 96361; 96374; 99284; J2405; J7040

== ENCOUNTER 2017-07-26 14:07 | Emergency (ER) | payer MEDICAID ==
[2017-07-26 14:15] VITALS: BMI 31.8
[2017-07-26 14:24] VITALS: BP 119/63; PULSE 97; RESP 19; TEMP 98.5; O2SAT 98
--- NOTE | 2017-07-26 15:26 | ED PDOC ---
Arrival/HPI - General Chief Complaint: Anxiety Time Seen by Provider: 07/26/17 14:38 Historian: Patient - History of Present Illness Narrative History of Present Illness (Text): 07/26/17 14:12 A 27 year old female, whose past medical history includes seizure disorder, anxiety, depression, and hypothyroidism, presents to the emergency department complaining of anxiety. Patient reports associated chest pain radiating across chest, shortness of breath, racing thoughts, and palpitations. Patient states she takes Ativan for anxiety. Patient denies any suicidal/homicidal ideation, shortness of breath, abdominal pain, nausea, vomiting or any other complaints at this time. PMD: Dr. Arrington Time/Duration: Other (today) Symptom Course: Unchanged Activities at Onset: Light Context: Home Past Medical History - Provider Review Nursing Documentation Reviewed: Yes - Infectious Disease Hx of Infectious Diseases: None - Tetanus Immunization Tetanus Immunization: Unknown - Cardiac Hx Cardiac Disorders: No Hx Hypertension: No - Pulmonary Hx Respiratory Disorders: No Hx Tuberculosis: No - Neurological Hx Neurological Disorder: Yes Hx Seizures: Yes - HEENT Hx HEENT Disorder: No - Renal Hx Renal Disorder: Yes Hx Pyelonephritis: Yes - Endocrine/Metabolic Hx Endocrine Disorders: Yes Hx Hypothyroidism: Yes - Hematological/Oncological Hx Blood Disorders: No Hx Cancer: No - Integumentary Hx Dermatological Disorder: No - Musculoskeletal/Rheumatological Hx Musculoskeletal Disorders: Yes Hx Back Pain: Yes Hx Falls: No Other/Comment: spondylosis - Gastrointestinal Hx Gastrointestinal Disorders: No - Genitourinary/Gynecological Hx Genitourinary Disorders: No Hx Sexually Transmitted Diseases: No - Psychiatric Hx Psychophysiologic Disorder: Yes Hx Bipolar Disorder: Yes Hx Depression: Yes Hx Substance Use: Yes - Surgical History Hx Section: Yes (x1) - Anesthesia Hx Anesthesia: Yes Hx Anesthesia Reactions: No Hx Malignant Hyperthermia: No Family/Social History - Physician Review Nursing Documentation Reviewed: Yes Family/Social History: No Known Family HX Smoking Status: Light Smoker < 10 Cigarettes Daily Hx Alcohol Use: No Hx Substance Use: Yes Substance used: marijuana Allergies/Home Meds Allergies/Adverse Reactions: Allergies No Known Allergies Allergy (Verified 07/26/17 15:21) Home Medications: Home Meds Medication Instructions Recorded Confirmed Levothyroxine [Synthroid] 25 mcg PO DAILY 06/28/17 07/26/17 Review of Systems - Physician Review All systems were reviewed & negative as marked: Yes - Review of Systems Cardiovascular: Chest Pain (going across chest according to patient, associated with anxiety) Gastrointestinal: absent: Abdominal Pain, Nausea, Vomiting Musculoskeletal: absent: Back Pain, Neck Pain Neurological: absent: Headache, Dizziness Psychiatric: Anxiety. absent: Suicidal Ideation (nor any homicidal ideation) Physical Exam Vital Signs Reviewed: Yes Vital Signs Temp Pulse Resp BP Pulse Ox 07/26/17 14:23 98.5 F 97 H 19 119/63 98 Temperature: Afebrile Blood Pressure: Normal Pulse: Regular Respiratory Rate: Normal Appearance: Positive for: Well-Appearing Pain Distress: None Mental Status: Positive for: Alert and Oriented X 3 - Systems Exam Head: Present: Atraumatic, Normocephalic Pupils: Present: PERRL Extroacular Muscles: Present: EOMI Conjunctiva: Present: Normal Mouth: Present: Moist Mucous Membranes Neck: Present: Normal Range of Motion Respiratory/Chest: Present: Clear to Auscultation, Good Air Exchange. No: Respiratory Distress, Accessory Muscle Use Cardiovascular: Present: Regular Rate and Rhythm, Normal S1, S2. No: Murmurs Abdomen: No: Tenderness, Distention, Peritoneal Signs Back: Present: Normal Inspection Upper Extremity: Present: Normal Inspection. No: Cyanosis, Edema Lower Extremity: Present: Normal Inspection. No: Edema Neurological: Present: GCS=15, CN II-XII Intact, Speech Normal Skin: Present: Warm, Dry, Normal Color. No: Rashes Psychiatric: Present: Alert, Oriented x 3, Normal Insight, Normal Concentration Medical Decision Making ED Course and Treatment: 07/26/17 14:16 Impression: 27 year old female with anxiety. No acute findings on physical examination. Differential Diagnosis included but are not limited to: Anxiety Plan: -- EKG -- Chest X-ray -- Ativan -- Reassess and disposition Prior Visits: Notes and results from previous visits were reviewed. Patient was last seen in the emergency department on 06/28/2017 for nausea and vomiting. Patient was ama. Progress Notes: EKG: Ordered, reviewed, and independently interpreted the EKG. Rate : 99 BPM Rhythm : NSR Interpretation : No ST-segment elevations or depressions, no T-wave inversions, normal intervals. Comparison : No previous EKG for comparison. 07/26/2017 17:02 Chest X-ray IMPRESSION: No active disease. No significant interval change compared to the prior examination(s). Dictator: Tyler Snyder MD 07/26/17 17:10 It was reported that the patient felt better but then also then reported by RN that patient eloped from the ED without communicating with staff. - RAD Interpretation Radiology Orders: 07/26/17 14:48 CHEST PORTABLE [RAD] Stat - EKG Interpretation Interpreted by ED Physician: Yes Type: 12 lead EKG - Medication Orders Current Medication Orders: Discontinued Medications Lorazepam (Ativan) 1 mg PO ONCE ONE PRN Reason: Protocol Stop: 07/26/17 14:49 Last Admin: 07/26/17 15:06 Dose: 1 mg - Scribe Statement The provider has reviewed the documentation as recorded by the Yves Ribeiro Provider Scribe Attestation: All medical record entries made by the Scribe were at my direction and personally dictated by me. I have reviewed the chart and agree that the record accurately reflects my personal performance of the history, physical exam, medical decision making, and the department course for this patient. I have also personally directed, reviewed, and agree with the discharge instructions and disposition. Disposition/Present on Arrival - Present on Arrival Any Indicators Present on Arrival: No History of DVT/PE: No History of Uncontrolled Diabetes: No Urinary Catheter: No History of Decub. Ulcer: No History Surgical Site Infection Following: None - Disposition Have Diagnosis and Disposition been Completed?: Yes Diagnosis: Anxiety Disposition: ELOPEMENT - ER ONLY Disposition Time: 17:10 Condition: GOOD Referrals: Vernon Arrington MD [Primary Care Provider] - Follow up with primary Forms: [employer] (Russian)
--- NOTE | 2017-07-26 17:04 | RAD ---
HISTORY: Chest pain COMPARISON: 01/01/2017 FINDINGS: LUNGS: No active pulmonary disease. PLEURA: No significant pleural effusion identified, no pneumothorax apparent. CARDIOVASCULAR: Normal. OSSEOUS STRUCTURES: No significant abnormalities. VISUALIZED UPPER ABDOMEN: Normal. OTHER FINDINGS: None. IMPRESSION: No active disease. No significant interval change compared to the prior examination(s).
--- NOTE | 2017-07-27 10:11 | CARD ---
APPROVED REPORT EKG Measurement Heart [id number] <Conclusion> Normal sinus rhythm Normal ECG Improved repolarization c/w ECG 01/01/17
== END 2017-07-26 17:13 | disposition left against medical advice (07) ==
LOC: ED 14:07
DX: F41.9 Anxiety disorder, unspecified (principal)

== ENCOUNTER 2017-08-09 20:22 | Emergency (ER) | payer MEDICAID ==
[2017-08-09 20:23] VITALS: BMI 31.8
[2017-08-09 20:42] VITALS: BP 120/75; PULSE 86; RESP 18; TEMP 98.2
[2017-08-09 21:18] VITALS: O2SAT 100
--- NOTE | 2017-08-09 21:30 | ED PDOC ---
Arrival/HPI - General Chief Complaint: Anxiety Time Seen by Provider: 08/09/17 20:55 - History of Present Illness Narrative History of Present Illness (Text): 27 y/o F c history of anxiety p/w anxiety. Patient states she has a history of anxiety and was formerly on Ativan but has since run out. She states she has never had a primary physician to get recurring refills from and only obtained this prescription for Ativan from a hospital once. Denies SI/HI/hallucinations. Past Medical History - Infectious Disease Hx of Infectious Diseases: None - Tetanus Immunization Tetanus Immunization: Unknown - Cardiac Hx Cardiac Disorders: No Hx Hypertension: No - Pulmonary Hx Respiratory Disorders: No Hx Tuberculosis: No - Neurological Hx Neurological Disorder: Yes Hx Seizures: Yes - HEENT Hx HEENT Disorder: No - Renal Hx Renal Disorder: Yes Hx Pyelonephritis: Yes - Endocrine/Metabolic Hx Endocrine Disorders: Yes Hx Hypothyroidism: Yes - Hematological/Oncological Hx Blood Disorders: No Hx Cancer: No - Integumentary Hx Dermatological Disorder: No - Musculoskeletal/Rheumatological Hx Musculoskeletal Disorders: Yes Hx Back Pain: Yes Hx Falls: No Other/Comment: spondylosis - Gastrointestinal Hx Gastrointestinal Disorders: No - Genitourinary/Gynecological Hx Genitourinary Disorders: No Hx Sexually Transmitted Diseases: No - Psychiatric Hx Psychophysiologic Disorder: Yes Hx Bipolar Disorder: Yes Hx Depression: Yes Hx Substance Use: Yes - Surgical History Hx Section: Yes (x1) - Anesthesia Hx Anesthesia: Yes Hx Anesthesia Reactions: No Hx Malignant Hyperthermia: No Family/Social History Family/Social History: No Known Family HX Smoking Status: Light Smoker < 10 Cigarettes Daily Hx Alcohol Use: No Hx Substance Use: Yes Substance used: marijuana Allergies/Home Meds Allergies/Adverse Reactions: Allergies No Known Allergies Allergy (Verified 07/26/17 15:21) Home Medications: Home Meds Medication Instructions Recorded Confirmed Levothyroxine [Synthroid] 25 mcg PO DAILY 06/28/17 08/09/17 Review of Systems - Physician Review All systems were reviewed & negative as marked: Yes - Review of Systems Constitutional: absent: Fevers Respiratory: absent: SOB Physical Exam - Physical Exam Narrative Physical Exam (Text): Gen: NAD Head: NC Eyes: No scleral icterus ENT: MMM Neck: Supple CV: Regular rate Lungs: CTA b/l Abd: Soft Extremities: No edema Skin: No rash Neuro: Alert Vital Signs Temp Pulse Resp BP Pulse Ox 05/21/18 20:41 98.2 F 86 18 120/75 97 Medical Decision Making ED Course and Treatment: PES evaluation initiated. Patient eloped. - RAD Interpretation Radiology Orders: 08/09/17 20:55 CHEST PORTABLE [RAD] Stat Disposition/Present on Arrival - Present on Arrival Any Indicators Present on Arrival: No History of DVT/PE: No History of Uncontrolled Diabetes: No Urinary Catheter: No History of Decub. Ulcer: No History Surgical Site Infection Following: None - Disposition Have Diagnosis and Disposition been Completed?: No Diagnosis: Anxiety Disposition: ELOPEMENT - ER ONLY Disposition Time: 21:32 Condition: STABLE Referrals: Vernon Arrington MD [Primary Care Provider] - Follow up with primary
== END 2017-08-09 21:13 | disposition left against medical advice (07) ==
LOC: ED 20:22
DX: F41.9 Anxiety disorder, unspecified (principal)

== ENCOUNTER 2018-04-14 14:12 | Emergency (ER) | payer MEDICAID, OTHER ==
[2018-04-14 14:17] VITALS: BP 136/82; PULSE 106; RESP 18; TEMP 98.2; O2SAT 100; BMI 27.6
--- NOTE | 2018-04-14 19:12 | ED PDOC ---
Arrival/HPI - General Chief Complaint: GI Problem Historian: Patient - History of Present Illness Narrative History of Present Illness (Text): 04/14/18 19:10 A 27 year old female, whose past medical history includes anxiety, presents to the emergency department complaining of mild nausea/vomiting since this morning. Patient reports she used 2 bags of heroin daily for the past couple of days, last usage was yesterday. States she has never used before in the past. Patient denies any SI/HI, or any other complaints at this time. PMD: Dr. Arrington Past Medical History - Provider Review Nursing Documentation Reviewed: Yes - Infectious Disease Hx of Infectious Diseases: None - Tetanus Immunization Tetanus Immunization: Unknown - Reproductive Menopause: No - Cardiac Hx Cardiac Disorders: No Hx Hypertension: No - Pulmonary Hx Respiratory Disorders: No Hx Tuberculosis: No - Neurological Hx Neurological Disorder: Yes Hx Seizures: Yes - HEENT Hx HEENT Disorder: No - Renal Hx Renal Disorder: Yes Hx Pyelonephritis: Yes - Endocrine/Metabolic Hx Endocrine Disorders: Yes Hx Hypothyroidism: Yes - Hematological/Oncological Hx Blood Disorders: No Hx Cancer: No - Integumentary Hx Dermatological Disorder: No - Musculoskeletal/Rheumatological Hx Musculoskeletal Disorders: Yes Hx Back Pain: Yes Hx Falls: No Other/Comment: spondylosis - Gastrointestinal Hx Gastrointestinal Disorders: No - Genitourinary/Gynecological Hx Genitourinary Disorders: No Hx Sexually Transmitted Diseases: No - Psychiatric Hx Psychophysiologic Disorder: Yes Hx Bipolar Disorder: Yes Hx Depression: Yes Hx Substance Use: Yes - Surgical History Hx Section: Yes (x1) - Anesthesia Hx Anesthesia: Yes Hx Anesthesia Reactions: No Hx Malignant Hyperthermia: No Family/Social History - Physician Review Nursing Documentation Reviewed: Yes Family/Social History: No Known Family HX Smoking Status: Light Smoker < 10 Cigarettes Daily Hx Alcohol Use: No Hx Substance Use: Yes Substance used: marijuana Allergies/Home Meds Allergies/Adverse Reactions: Allergies No Known Allergies Allergy (Verified 07/26/17 15:21) Home Medications: Home Meds Medication Instructions Recorded Confirmed Levothyroxine [Synthroid] 25 mcg PO DAILY 06/28/17 08/09/17 Review of Systems - Physician Review All systems were reviewed & negative as marked: Yes - Review of Systems Gastrointestinal: Nausea, Vomiting Psychiatric: absent: Suicidal Ideation (and no homicidal ideation) Physical Exam Vital Signs Reviewed: Yes Vital Signs Temp Pulse Resp BP Pulse Ox 04/14/18 14:15 98.2 F 106 H 18 136/82 100 Temperature: Afebrile Blood Pressure: Normal Pulse: Regular Respiratory Rate: Normal Appearance: Positive for: Well-Appearing, Non-Toxic, Comfortable Pain Distress: None Mental Status: Positive for: Alert and Oriented X 3 - Systems Exam Head: Present: Atraumatic, Normocephalic Pupils: Present: PERRL Extroacular Muscles: Present: EOMI Conjunctiva: Present: Normal Mouth: Present: Moist Mucous Membranes Neck: Present: Normal Range of Motion Respiratory/Chest: Present: Clear to Auscultation, Good Air Exchange. No: Respiratory Distress, Accessory Muscle Use Cardiovascular: Present: Regular Rate and Rhythm, Normal S1, S2. No: Murmurs Abdomen: No: Tenderness, Distention, Peritoneal Signs Back: Present: Normal Inspection Upper Extremity: Present: Normal Inspection. No: Cyanosis, Edema Lower Extremity: Present: Normal Inspection. No: Edema Neurological: Present: GCS=15, CN II-XII Intact, Speech Normal Skin: Present: Warm, Dry, Normal Color. No: Rashes Psychiatric: Present: Alert, Oriented x 3, Normal Insight, Normal Concentration Medical Decision Making ED Course and Treatment: 04/14/18 19:10 Impression: 27 year old female with mild nausea/vomiting, No acute findings on physical exam. Plan: -- Reassess and disposition Prior Visits: Notes and results from previous visits were reviewed. Patient was last seen here in the emergency department on 08/09/2017 requesting for refill of Ativan for her anxiety. Patient eloped. Progress Notes: 04/14/18 19:10 Patient later on stated she uses 15 bags of heroin daily rather than 2 bags. Encouraged patient to follow-up with detox center and patient agreed with plan. - Medication Orders Current Medication Orders: Discontinued Medications Famotidine (Pepcid) 20 mg PO STAT STA Stop: 04/14/18 14:52 Ondansetron HCl (Zofran Odt) 8 mg PO STAT STA Stop: 04/14/18 14:52 - Scribe Statement The provider has reviewed the documentation as recorded by the Yves Ribeiro Provider Scribe Attestation: All medical record entries made by the Scribe were at my direction and personally dictated by me. I have reviewed the chart and agree that the record accurately reflects my personal performance of the history, physical exam, medical decision making, and the department course for this patient. I have also personally directed, reviewed, and agree with the discharge instructions and disposition. Disposition/Present on Arrival - Present on Arrival Any Indicators Present on Arrival: No History of DVT/PE: No History of Uncontrolled Diabetes: No Urinary Catheter: No History of Decub. Ulcer: No History Surgical Site Infection Following: None - Disposition Have Diagnosis and Disposition been Completed?: Yes Diagnosis: Heroin withdrawal Disposition: HOME/ ROUTINE Disposition Time: 14:50 Condition: GOOD Discharge Instructions (ExitCare): Drug Abuse Treatment Additional Instructions: MIKE YADAV, thank you for letting us take care of you today. The emergency medical care you received today was directed at your acute symptoms. If you were prescribed any medication, please fill it and take as directed. It may take several days for your symptoms to resolve. Return to the Emergency Department if your symptoms worsen, do not improve, or if you have any other problems. Please contact your doctor or call one of the physicians/clinics you have been referred to that are listed on the Patient Visit Information form that is included in your discharge packet. Bring any paperwork you were given at discharge with you along with any medications you are taking to your follow up visit. Our treatment cannot replace ongoing medical care by a primary care provider outside of the emergency department. Thank you for allowing the [facility] team to be part of your care today. Do not use any heroin. Follo wup with your psychiatrist or your primary care doctor in 2-3 days for re- evaluation and further management. Prescriptions: Famotidine [Pepcid] 20 mg PO BID #10 tab Ondansetron ODT [Zofran ODT] 8 mg PO Q8 PRN #15 odt PRN Reason: Nausea/Vomiting Referrals: [facility], [Non-Staff] - Follow up with primary Forms: [employer] (Malay), WORK NOTE
== END 2018-04-14 16:00 | disposition home or self-care (01) ==
LOC: ED 14:12
DX: F11.23 Opioid dependence with withdrawal (principal); F17.210 Nicotine dependence, cigarettes, uncomplicated; E03.9 Hypothyroidism, unspecified